=== PATIENT | male | born 1990 | race Two or more races ===

== ENCOUNTER 2021-02-12 16:57 | Emergency (ER) | payer OTHER, SELFPAY ==
--- NOTE | ~2021-02-12 | CT_ITS ---
EXAMINATION: CT HEAD WITHOUT CONTRAST CT CERVICAL SPINE WITHOUT CONTRAST CLINICAL INFORMATION: Trauma COMPARISON: None. TECHNIQUE: Multidetector CT imaging of the head and cervical spine was performed without the use of intravenous contrast. Multiplanar reformats are reviewed. This CT examination was performed using dose optimization techniques as appropriate, variously including the following: *Automated exposure control *Adjustment of mA and/or kV according to patient size (this includes techniques or standardized protocols for targeted exams where dose is matched to indication/reason for exam; i.e. extremities or head) *Use of iterative reconstruction technique DLP: 1174 mGy-cm. FINDINGS: There is no evidence of acute intracranial hemorrhage or territorial infarction. No abnormal mass effect or midline shift is seen. Cespedes to white matter differentiation is well preserved. No extra-axial fluid collections are identified. The ventricles are normal in size. There is no abnormal attenuation within the brain parenchyma. The osseous structures and soft tissues are normal. The mastoid air cells and visualized portions of the paranasal sinuses are well-aerated. Atlantooccipital alignment is maintained. The vertebral bodies and posterior elements align normally. No acute fracture or subluxation. Vertebral body heights and intervertebral disc spaces are preserved. Mild uncovertebral arthrosis present at C3-C4. No significant foraminal narrowing or central canal stenosis. The paraspinal soft tissues are unremarkable. The imaged lung apices are clear CT/CT head/brain wo con IMPRESSION: No acute intracranial pathology. No cervical spine fracture or malalignment.
--- NOTE | ~2021-02-12 | XR_ITS ---
EXAMINATION: XR LEFT WRIST: 4 VIEWS CLINICAL INFORMATION: Pain. Trauma. COMPARISON: None FINDINGS: No acute fracture or dislocation. Joint spaces and articular surfaces are preserved. Soft tissues unremarkable. No radiopaque foreign bodies. XR/XR hand wrist LT IMPRESSION: No acute fracture or dislocation.
--- NOTE | ~2021-02-12 | XR_ITS ---
EXAMINATION: XR TIBIA AND FIBULA, LEFT CLINICAL INFORMATION: Pain. Trauma. COMPARISON: None TECHNIQUE: AP and lateral views of the left tibia and fibula were obtained. FINDINGS: No fracture. No dislocation. No joint space narrowing or marginal osteophytes. No osseous erosion. XR/XR tibia fibula LT 2V IMPRESSION: Unremarkable examination.
--- NOTE | ~2021-02-12 | CT_ITS ---
EXAMINATION: CT HEAD WITHOUT CONTRAST CT CERVICAL SPINE WITHOUT CONTRAST CLINICAL INFORMATION: Trauma COMPARISON: None. TECHNIQUE: Multidetector CT imaging of the head and cervical spine was performed without the use of intravenous contrast. Multiplanar reformats are reviewed. This CT examination was performed using dose optimization techniques as appropriate, variously including the following: *Automated exposure control *Adjustment of mA and/or kV according to patient size (this includes techniques or standardized protocols for targeted exams where dose is matched to indication/reason for exam; i.e. extremities or head) *Use of iterative reconstruction technique DLP: 1174 mGy-cm. FINDINGS: There is no evidence of acute intracranial hemorrhage or territorial infarction. No abnormal mass effect or midline shift is seen. Cespedes to white matter differentiation is well preserved. No extra-axial fluid collections are identified. The ventricles are normal in size. There is no abnormal attenuation within the brain parenchyma. The osseous structures and soft tissues are normal. The mastoid air cells and visualized portions of the paranasal sinuses are well-aerated. Atlantooccipital alignment is maintained. The vertebral bodies and posterior elements align normally. No acute fracture or subluxation. Vertebral body heights and intervertebral disc spaces are preserved. Mild uncovertebral arthrosis present at C3-C4. No significant foraminal narrowing or central canal stenosis. The paraspinal soft tissues are unremarkable. The imaged lung apices are clear CT/CT cervical spine wo con IMPRESSION: No acute intracranial pathology. No cervical spine fracture or malalignment.
[2021-02-12 16:58] VITALS: BP 156/106; PULSE 105; RESP 20; TEMP 37; O2SAT 98; BMI 26.4
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
[2021-02-12 18:35] VITALS: BP 149/100; PULSE 79; RESP 14; O2SAT 100
== END 2021-02-12 18:50 | disposition home or self-care (01) ==
PROVIDERS: Emergency Provider Internal Medicine
DX: S16.1XXA Strain of muscle, fascia and tendon at neck level, initial encounter (principal); S06.0X0A Concussion without loss of consciousness, initial encounter; S80.12XA Contusion of left lower leg, initial encounter; V43.62XA Car passenger injured in collision with other type car in traffic accident, initial encounter; W22.12XA Striking against or struck by front passenger side automobile airbag, initial encounter; M25.532 Pain in left wrist; M79.645 Pain in left finger(s); F17.200 Nicotine dependence, unspecified, uncomplicated; F12.90 Cannabis use, unspecified, uncomplicated; Y93.89 Activity, other specified; Y92.414 Local residential or business street as the place of occurrence of the external cause; Y99.9 Unspecified external cause status
CPT/HCPCS: 70450; 72125; 73110; 73130; 73590; 99284; 99285

== ENCOUNTER 2021-02-24 02:23 | Emergency (ER) | payer MEDICAID, SELFPAY ==
[2021-02-24] VITALS (8 sets, daily range): BP systolic 111–149; BP diastolic 74–95; PULSE 72–94; RESP 14–18; TEMP 36.7; O2SAT 96–99; BMI 30.2
--- NOTE | 2021-02-24 02:58 | ED.OVERDOSE ---
HPI - Overdose General Chief Complaint: Overdose Stated Complaint: OVERDOSE Time Seen by Provider: 02/24/21 02:58 Source: patient Mode of arrival: ambulatory Limitations: no limitations History of Present Illness HPI Narrative: Patient feeling depressed took about 12 tablets of regular Tylenol and five 800 mg of ibuprofen an hour prior to arrival as a suicidal attempt patient was also drinking all day denies any suicidal feeling at this time feel depressed complaint: intentional overdose Onset (ago): hour(s) Related Data Previous Rx's Medication Instructions Recorded cyclobenzaprine 10 mg PO TID PRN #10 tab 02/12/21 ibuprofen 800 mg PO Q8H PRN #20 tab 02/12/21 Allergies Allergy/AdvReac Type Severity Reaction Status Date / Time acyclovir [ACYCLOVIR] Allergy Unknown UNKNOWN Verified 02/12/21 17:14 Review of Systems Review of Systems: Constitutional : No Fever, No Chills ENT/Mouth : No Ear Pain, No Nasal Congestion, No sore throat Eyes: No Eye Pain, No Swelling, No Redness Cardiovascular : No Chest Pain, No SOB Respiratory : No Cough, No Sputum, No Dyspnea Gastrointestinal : No Nausea, No Vomiting, No Diarrhea, No Hematochezia, No Melena Genitourinary : No Dysuria, No Urinary Frequency, No Hematuria Musculoskeletal : No Myalgias Skin : No Skin Lesions, No rash Neuro : No Weakness, No Numbness, No Paresthesias, No Dizziness, No Headache Psych : positive Anxiety, positive Depression, positive SI Heme/Lymph: No Lymphadenopathy Endocrine : No Polyuria, No Polydipsia [facility] Past Medical History Medical History (Updated 02/24/21 @ 03:05 by Nam Tidwell MD) Depression Social History Social History Smoking Status: Current every day smoker Substance Use Type: Marijuana Advance Directives: No Advance Directives Information Provided: No Physical Exam Vital Signs: Vital Signs: Last Vital Signs Temp 98.1 F 02/24/21 03:06 Pulse 75 02/24/21 05:39 Resp 16 02/24/21 05:39 BP 128/86 02/24/21 05:39 Pulse Ox 97 02/24/21 05:39 Body Mass Index 30.2 Const: Other: EtOH smell++ General: healthy appearing, comfortable and no acute distress Nutritional Appearance: average body habitus Orientation/consciousness: patient oriented x3 HENMT: Head: Yes normocephalic and Yes atraumatic Ears: hearing grossly normal bilaterally Eyes: General: appearance normal, both eyes and all related structures Sclerae: sclerae normal Corneas: corneas normal Pupils: Equal, round and reactive pupils present Neck: Neck: Yes normal visual inspection, Yes full ROM, Yes no lymphadenopathy and Yes no meningeal signs Chest: Chest palpation & inspection: normal inspection of the chest Resp: Effort & Inspection: normal respiratory effort Auscultation: clear to auscultation bilaterally Cardio: Palpation: normal PMI Rate: regular rate Rhythm: regular rhythm Heart sounds: S1 normal heart sound present and S2 normal heart sound present GI: Inspection: Yes normal to inspection Palpation (GI): Soft to palpation and nontender Auscultation: normal bowel sounds : General: Yes no CVA tenderness Back/Spine/Pelvis: Back: no CVA tenderness Thoracic/Lumbar Spine: thoracic and lumbar spine normal to inspection Skin: General skin exam: no rashes or lesions noted Neuro: General: patient oriented x3, gait normal, tone normal, no meningeal signs, no focal motor deficits and CN's II-XI intact bilaterally Cranial nerves: Yes Equal, round and reactive pupils present Extrem: General: Yes normal to inspection and Yes no pedal edema Psych: Appearance: grossly normal Mental Status: mental status grossly normal Speech and movement: Normal speech and movement present Affect: Sad affect present Attitude: cooperative Thought process: Normal thought process present Thought content: Suicidality present Insight: Fair insight present (Psych) Judgement: Fair judgement present (Psych) MDM - Overdose MDM Narrative Medical decision making narrative: Patient depression nontoxic overdose with alcohol use suicidal feeling will get crisis evaluated patient medically cleared Differential Diagnosis Differential diagnosis: Likely suicide attempt by multiple drug overdose Lab Data Attestation: I reviewed the patient's lab results. Result diagrams: 02/24/21 03:58 02/24/21 03:58 Labs: Lab Results 02/24/21 02/24/21 02/24/21 Range/Units 03:46 03:49 03:57 WBC (4.8-10.8) X10*3/uL RBC (4.60-5.80) X10*6/uL Hgb (14.0-18.0) g/dl Hct (42-52) % MCV (80-98) fL MCH (27.0-33.0) pg MCHC (31.0-36.0) g/dl RDW (11.0-16.0) % Plt Count (160-400) X10*3/uL MPV (9.4-12.4) fL Immature Gran % (Auto) (0.0-0.4) % Neut % (Auto) (45-73) % Lymph % (Auto) (20-40) % [place] % (Auto) (2-11) % Eos % (Auto) (0-4) % Baso % (Auto) (0-2) % Lymph # (Auto) (1.2-4.9) X10*3/uL [place] # (Auto) (0.1-1.2) X10*3/uL Eos # (Auto) (0.0-0.4) X10*3/uL Baso # (Auto) (0.0-0.2) X10*3/uL Abs Immat Gran (auto) (0.00-0.03) X10*3/uL Absolute Neuts (auto) (2.0-8.3) X10*3/uL Absolute Nucleated RBC (0.0-0.012) X10*3/uL Nucleated RBC % (auto) (0.0-0.2) /100WBC PT (10.8-13.0) SEC INR (0.9-1.1) Sodium (135-145) mmol/L Potassium (3.3-5.1) mmol/L Chloride (96-108) mmol/L Carbon Dioxide (22-29) mmol/L Anion Gap (12-20) BUN (9-16) mg/dL Creatinine (0.5-1.4) mg/dL Estim Creat Clear Calc Estimated GFR Random Glucose (60-115) mg/dL Calcium (8.4-10.2) mg/dL Total Bilirubin (0.0-1.0) mg/dL Direct Bilirubin (0.0-0.5) mg/dL AST (5-37) U/L ALT (0-40) U/L Alkaline Phosphatase (39-117) U/L Total Protein (6.5-8.0) g/dL Albumin (3.5-5.0) g/dL Salicylates (15-30) mg/dL Urine Opiates Screen Not Detected (Not Detect) Acetaminophen (<30) mcg/mL Ur Barbiturates Screen Not Detected (Not Detect) Ur Phencyclidine Scrn Not Detected (Not Detect) Ur Amphetamines Screen Not Detected (Not Detect) U Benzodiazepines Scrn Not Detected (Not Detect) Urine Cocaine Screen POSITIVE H (Not Detect) U Marijuana (THC) Screen Not Detected (Not Detect) Ethyl Alcohol 94 mg/dL COVID-19 ([facility]) Negative (Negative) COVID-19 Clin Com See Note 02/24/21 02/24/21 02/24/21 Range/Units 03:57 03:58 03:58 WBC 10.8 (4.8-10.8) X10*3/uL RBC 5.47 (4.60-5.80) X10*6/uL Hgb 16.6 (14.0-18.0) g/dl Hct 47.7 (42-52) % MCV 87.2 (80-98) fL MCH 30.3 (27.0-33.0) pg MCHC 34.8 (31.0-36.0) g/dl RDW 12.7 (11.0-16.0) % Plt Count 199 (160-400) X10*3/uL MPV 10.8 (9.4-12.4) fL Immature Gran % (Auto) 0.3 (0.0-0.4) % Neut % (Auto) 61.5 (45-73) % Lymph % (Auto) 30.2 (20-40) % [place] % (Auto) 7.4 (2-11) % Eos % (Auto) 0.1 (0-4) % Baso % (Auto) 0.5 (0-2) % Lymph # (Auto) 3.3 (1.2-4.9) X10*3/uL [place] # (Auto) 0.8 (0.1-1.2) X10*3/uL Eos # (Auto) 0.0 (0.0-0.4) X10*3/uL Baso # (Auto) 0.1 (0.0-0.2) X10*3/uL Abs Immat Gran (auto) 0.03 (0.00-0.03) X10*3/uL Absolute Neuts (auto) 6.7 (2.0-8.3) X10*3/uL Absolute Nucleated RBC 0.000 (0.0-0.012) X10*3/uL Nucleated RBC % (auto) 0.0 (0.0-0.2) /100WBC PT (10.8-13.0) SEC INR (0.9-1.1) Sodium 141 (135-145) mmol/L Potassium 3.5 (3.3-5.1) mmol/L Chloride 104 (96-108) mmol/L Carbon Dioxide 25 (22-29) mmol/L Anion Gap 16 (12-20) BUN 7 L (9-16) mg/dL Creatinine 0.87 (0.5-1.4) mg/dL Estim Creat Clear Calc 132.8 Estimated GFR > 60 Random Glucose 96 (60-115) mg/dL Calcium 9.1 (8.4-10.2) mg/dL Total Bilirubin 0.4 (0.0-1.0) mg/dL Direct Bilirubin 0.2 (0.0-0.5) mg/dL AST 16 (5-37) U/L ALT 23 (0-40) U/L Alkaline Phosphatase 61 (39-117) U/L Total Protein 7.2 (6.5-8.0) g/dL Albumin 4.7 (3.5-5.0) g/dL Salicylates < 5.0 L (15-30) mg/dL Urine Opiates Screen (Not Detect) Acetaminophen 73 H* (<30) mcg/mL Ur Barbiturates Screen (Not Detect) Ur Phencyclidine Scrn (Not Detect) Ur Amphetamines Screen (Not Detect) U Benzodiazepines Scrn (Not Detect) Urine Cocaine Screen (Not Detect) U Marijuana (THC) Screen (Not Detect) Ethyl Alcohol mg/dL COVID-19 ([facility]) (Negative) COVID-19 Clin Com 02/24/21 Range/Units 03:58 WBC (4.8-10.8) X10*3/uL RBC (4.60-5.80) X10*6/uL Hgb (14.0-18.0) g/dl Hct (42-52) % MCV (80-98) fL MCH (27.0-33.0) pg MCHC (31.0-36.0) g/dl RDW (11.0-16.0) % Plt Count (160-400) X10*3/uL MPV (9.4-12.4) fL Immature Gran % (Auto) (0.0-0.4) % Neut % (Auto) (45-73) % Lymph % (Auto) (20-40) % [place] % (Auto) (2-11) % Eos % (Auto) (0-4) % Baso % (Auto) (0-2) % Lymph # (Auto) (1.2-4.9) X10*3/uL [place] # (Auto) (0.1-1.2) X10*3/uL Eos # (Auto) (0.0-0.4) X10*3/uL Baso # (Auto) (0.0-0.2) X10*3/uL Abs Immat Gran (auto) (0.00-0.03) X10*3/uL Absolute Neuts (auto) (2.0-8.3) X10*3/uL Absolute Nucleated RBC (0.0-0.012) X10*3/uL Nucleated RBC % (auto) (0.0-0.2) /100WBC PT 12.8 (10.8-13.0) SEC INR 1.1 (0.9-1.1) Sodium (135-145) mmol/L Potassium (3.3-5.1) mmol/L Chloride (96-108) mmol/L Carbon Dioxide (22-29) mmol/L Anion Gap (12-20) BUN (9-16) mg/dL Creatinine (0.5-1.4) mg/dL Estim Creat Clear Calc Estimated GFR Random Glucose (60-115) mg/dL Calcium (8.4-10.2) mg/dL Total Bilirubin (0.0-1.0) mg/dL Direct Bilirubin (0.0-0.5) mg/dL AST (5-37) U/L ALT (0-40) U/L Alkaline Phosphatase (39-117) U/L Total Protein (6.5-8.0) g/dL Albumin (3.5-5.0) g/dL Salicylates (15-30) mg/dL Urine Opiates Screen (Not Detect) Acetaminophen (<30) mcg/mL Ur Barbiturates Screen (Not Detect) Ur Phencyclidine Scrn (Not Detect) Ur Amphetamines Screen (Not Detect) U Benzodiazepines Scrn (Not Detect) Urine Cocaine Screen (Not Detect) U Marijuana (THC) Screen (Not Detect) Ethyl Alcohol mg/dL COVID-19 ([facility]) (Negative) COVID-19 Clin Com ECG Data Attestation: I personally reviewed and interpreted this ECG as follows: Interpretation: Normal sinus rhythm heart rate 67 beats per minute normal axis normal intervals no acute ST T wave changes no acute ischemia Discharge Plan Discharge Prescriptions: No Action cyclobenzaprine 10 mg tablet 10 mg PO TID PRN (Reason: muscle spasm) Qty: 10 RF: 0 ibuprofen 800 mg tablet 800 mg PO Q8H PRN (Reason: pain) Qty: 20 RF: 0
--- NOTE | 2021-02-24 02:59 | ECG_ITS ---
Test Reason : OD Blood Pressure : / mmHG Vent. Rate : 067 BPM Atrial Rate : 067 BPM P-R Int : 134 ms QRS Dur : 104 ms QT Int : 422 ms P-R-T Axes : 022 038 018 degrees QTc Int : 445 ms Normal sinus rhythm Nonspecific ST and T wave abnormality Abnormal ECG No previous ECGs available Referred By: Nam Tidwell Electronically Signed By:ANAID COOK MD
--- NOTE | 2021-02-24 03:00 | PC.NURSE ---
HL PLACED TO [facility], LABS DRAWN TO LAB. URINE SAMPLE SENT TO LAB FOR EVAL.
[2021-02-24] MEDS: Activated charcoaL 50 GM/240 ML ORAL.SUSP PO (03:30)
--- NOTE | 2021-02-24 03:30 | PC.NURSE ---
PT DRINKING CHAROCOAL AT THIS TIME,
[2021-02-24 04:06] LABS: MANUAL DIFF FLAG NO
[2021-02-24 04:08] LABS: Basophils Absolute Auto 0.1 X10*3/uL (0.0-0.2); Basophils Percent Auto 0.5 % (0-2); Eosinophils Percent Auto 0.1 % (0-4); Hematocrit 47.7 % (42-52); Hemoglobin 16.6 g/dl (14.0-18.0); Imm Gran Abs Auto 0.03 X10*3/uL (0.00-0.03); Imm Gran Pct Auto 0.3 % (0.0-0.4); Lymphocytes Absolute Auto 3.3 X10*3/uL (1.2-4.9); Lymphocytes Percent Auto 30.2 % (20-40); Mean Corpuscular HGB Conc 34.8 g/dl (31.0-36.0); Mean Corpuscular Hemoglobin 30.3 pg (27.0-33.0); Mean Corpuscular Volume 87.2 fL (80-98); Mean Platelet Volume 10.8 fL (9.4-12.4); Monocytes Absolute Auto 0.8 X10*3/uL (0.1-1.2); Monocytes Percent Auto 7.4 % (2-11); Neutrophils Absolute Auto 6.7 X10*3/uL (2.0-8.3); Neutrophils Percent Auto 61.5 % (45-73); Platelet Count 199 X10*3/uL (160-400); Red Blood Count 5.47 X10*6/uL (4.60-5.80); Red Cell Distribution Width 12.7 % (11.0-16.0); White Blood Count 10.8 X10*3/uL (4.8-10.8)
[2021-02-24 04:23] LABS: COVID-19 Test Negative (Negative)
[2021-02-24 04:25] LABS: INTERNATIONAL NORM RATIO 1.1 (0.9-1.1); Prothrombin Time 12.8 SEC (10.8-13.0)
[2021-02-24 04:27] LABS: Ethanol 94 mg/dL
[2021-02-24 04:30] LABS: Alanine Aminotransferase 23 U/L (0-40); Albumin Level 4.7 g/dL (3.5-5.0); Alkaline Phosphatase 61 U/L (39-117); Anion Gap 16 (12-20); Aspartate Amino Transferase 16 U/L (5-37); Bilirubin Direct 0.2 mg/dL (0.0-0.5); Bilirubin Total 0.4 mg/dL (0.0-1.0); Blood Urea Nitrogen 7 mg/dL (9-16); Calcium 9.1 mg/dL (8.4-10.2); Carbon Dioxide 25 mmol/L (22-29); Chloride 104 mmol/L (96-108); Creatinine Clr Calc Pharmacy 132.8; Estimated Glomerular Filt Rate > 60; Glucose Random 96 mg/dL (60-115); Potassium 3.5 mmol/L (3.3-5.1); Salicylate < 5.0 mg/dL (15-30); Sodium 141 mmol/L (135-145); Total Protein 7.2 g/dL (6.5-8.0)
--- NOTE | 2021-02-24 04:33 | PC.NURSE ---
PT REMAINS CALM AND COOPERATIVE IN ROOM, PT DENIES ANY COMPLAINTS, SITTER WATCHING PT FOR SAFETY. PT IN NAD.
[2021-02-24 04:34] LABS: Acetaminophen LAB 73 mcg/mL (<30)
[2021-02-24 04:44] LABS: Amphetamine Screen Urine Not Detected (Not Detect); Barbiturates, Urine Not Detected (Not Detect); Benzodiazepines Screen Urine Not Detected (Not Detect); Cannabinoid Screen Urine Not Detected (Not Detect); Cocaine Screen Urine POSITIVE (Not Detect); Opiate Screen Urine Not Detected (Not Detect); Phencyclidine Screen Urine Not Detected (Not Detect)
--- NOTE | 2021-02-24 05:40 | PC.NURSE ---
pt refusing to drink charcoal. aware.
[2021-02-24 07:03] LABS: Acetaminophen LAB 55 mcg/mL (<30)
[2021-02-24] MEDS: Omeprazole 20 MG CAPSULE.DR PO (08:06)
[2021-02-24] MEDS: Magnesium Hydrox/Alum Hydrox 30 ML ORAL.SUSP PO (08:06)
--- NOTE | 2021-02-24 09:52 | PC.NURSE ---
Pt calm and cooperative. Denies SI/HI at this time. Aware of plan to await [facility]N evaluation. Breakfast provided. [facility]N faxed/called as pt medically cleared. n to call this RN back for more information regarding pt.
--- NOTE | 2021-02-24 15:27 | MHC.CM.ED ---
Per Jory Schultz in Finance: Jeancarlos Olmos is listed as self-pay. The MH application is completed and he is eligible effective 02/14/21. Account will be updated once it shows active in the eligibility system. Currently it shows pending MH. Registration is aware and they will alert billing.
--- NOTE | 2021-02-24 17:26 | PC.NURSE ---
BHN at bedside at this time
== END 2021-02-24 18:35 | disposition home or self-care (01) ==
PROVIDERS: Emergency Provider Internal Medicine
DX: F33.1 Major depressive disorder, recurrent, moderate (principal); T39.1X2A Poisoning by 4-Aminophenol derivatives, intentional self-harm, initial encounter; T39.311A Poisoning by propionic acid derivatives, accidental (unintentional), initial encounter; Y92.9 Unspecified place or not applicable; F17.200 Nicotine dependence, unspecified, uncomplicated; F12.90 Cannabis use, unspecified, uncomplicated; Z71.6 Tobacco abuse counseling; Z79.899 Other long term (current) drug therapy; Z20.822 Contact with and (suspected) exposure to COVID-19
CPT/HCPCS: 36415; 80048; 80076; 80143; 80179; 80307; 80320; 85025; 85610; 87635; 93005; 99285

== ENCOUNTER 2021-08-20 16:51 | Emergency (ER) | payer MEDICAID, SELFPAY ==
--- NOTE | ~2021-08-20 | XR_ITS ---
EXAMINATION: XR CHEST XR LUMBOSACRAL SPINE CLINICAL INFORMATION: Shortness of breath. Back pain. COMPARISON: None TECHNIQUE: 2 views of the chest and 2 views, 3 images of the lumbosacral spine were obtained. FINDINGS: Chest: Both lungs are symmetrically expanded, and appear clear. The cardiomediastinal silhouette is within normal limits. No evidence of any pleural effusion or pneumothorax present. The visualized upper abdomen is unremarkable. Lumbosacral spine: The heights of the lumbar vertebrae are well-maintained. The intervertebral disc heights are well-maintained. The posterior appendages are intact. The paraspinal soft tissues are unremarkable. XR/XR lumbar spine 2-3V IMPRESSION: Unremarkable radiographic appearance of the chest and lumbosacral spine.
--- NOTE | ~2021-08-20 | XR_ITS ---
EXAMINATION: XR CHEST XR LUMBOSACRAL SPINE CLINICAL INFORMATION: Shortness of breath. Back pain. COMPARISON: None TECHNIQUE: 2 views of the chest and 2 views, 3 images of the lumbosacral spine were obtained. FINDINGS: Chest: Both lungs are symmetrically expanded, and appear clear. The cardiomediastinal silhouette is within normal limits. No evidence of any pleural effusion or pneumothorax present. The visualized upper abdomen is unremarkable. Lumbosacral spine: The heights of the lumbar vertebrae are well-maintained. The intervertebral disc heights are well-maintained. The posterior appendages are intact. The paraspinal soft tissues are unremarkable. XR/XR chest 2V IMPRESSION: Unremarkable radiographic appearance of the chest and lumbosacral spine.
[2021-08-20 16:57] VITALS: BP 132/73; BP 160/50; PULSE 73; PULSE 88; RESP 18; TEMP 36.1; O2SAT 99; BMI 25.7
--- NOTE | 2021-08-20 17:06 | PC.NURSE ---
patient arrives to ED with back spasm. States history of back pain. A+Ox4. 09/03 pain. VSS. Able to move lower and upper extremities.
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
[2021-08-20] MEDS: methylPREDNISolone Sod Succ 125 MG/2 ML VIAL IVPUSH (17:19)
[2021-08-20] MEDS: Ketorolac Tromethamine 15 MG/ML VIAL 30 MG IVPUSH (17:20)
[2021-08-20] MEDS: HYDROmorphone HCl 1 MG/ML SYRINGE IVPUSH (17:21)
[2021-08-20 17:23] LABS: MANUAL DIFF FLAG NO
[2021-08-20 17:31] LABS: Basophils Percent Auto 0.4 % (0-2); Eosinophils Percent Auto 0.2 % (0-4); Hematocrit 44.9 % (42-52); Hemoglobin 15.5 g/dl (14.0-18.0); Imm Gran Abs Auto 0.02 X10*3/uL (0.00-0.03); Imm Gran Pct Auto 0.2 % (0.0-0.4); Lymphocytes Absolute Auto 1.7 X10*3/uL (1.2-4.9); Lymphocytes Percent Auto 16.6 % (20-40); Mean Corpuscular HGB Conc 34.5 g/dl (31.0-36.0); Mean Corpuscular Hemoglobin 29.8 pg (27.0-33.0); Mean Corpuscular Volume 86.3 fL (80-98); Mean Platelet Volume 11.1 fL (9.4-12.4); Monocytes Absolute Auto 0.6 X10*3/uL (0.1-1.2); Monocytes Percent Auto 5.9 % (2-11); Neutrophils Absolute Auto 8.1 X10*3/uL (2.0-8.3); Neutrophils Percent Auto 76.7 % (45-73); Platelet Count 188 X10*3/uL (160-400); Red Cell Distribution Width 12.7 % (11.0-16.0); White Blood Count 10.5 X10*3/uL (4.8-10.8)
[2021-08-20 17:39] LABS: COVID-19 Test Negative (Negative)
[2021-08-20 17:45] LABS: Alanine Aminotransferase 33 U/L (0-40); Albumin Level 4.4 g/dL (3.5-5.0); Alkaline Phosphatase 56 U/L (39-117); Anion Gap 12 (12-20); Aspartate Amino Transferase 18 U/L (5-37); Bilirubin Total 0.7 mg/dL (0.0-1.0); Blood Urea Nitrogen 10 mg/dL (9-16); Calcium 9.5 mg/dL (8.4-10.2); Carbon Dioxide 27 mmol/L (22-29); Chloride 106 mmol/L (96-108); Creatinine Clr Calc Pharmacy 102.6; Estimated Glomerular Filt Rate > 60; Glucose Random 102 mg/dL (60-115); Potassium 3.8 mmol/L (3.3-5.1); Sodium 141 mmol/L (135-145); Total Protein 6.6 g/dL (6.5-8.0)
[2021-08-20 19:32] LABS: Appearance Urine CLEAR; Color Urine YELLOW; Glucose Urine UA NEG (NEG); Leukocyte Esterase Urine NEG (NEG); Nitrite Urine NEG (NEG); PH 8.5 (5.0-8.0); Specific Gravity - Urine 1.015 (1.005-1.025); Urine Blood NEG (NEG); Urine Ketones 15 MG/DL (NEG); Urine Protein NEG (NEG-TRACE)
== END 2021-08-20 20:19 | disposition home or self-care (01) ==
PROVIDERS: Emergency Provider Emergency Medicine; PCP Internal Medicine
DX: M54.5 Low back pain (principal); F12.90 Cannabis use, unspecified, uncomplicated; R05 Cough; R06.02 Shortness of breath; Z20.822 Contact with and (suspected) exposure to COVID-19; Z79.899 Other long term (current) drug therapy
CPT/HCPCS: 36415; 71046; 72100; 80053; 81003; 85025; 87635; 96374; 96375; 99283; 99284; J1170; J1885; J2930

== ENCOUNTER 2021-11-02 18:56 | Emergency (ER) | payer MEDICAID, SELFPAY ==
[2021-11-02 19:11] VITALS: BP 130/70; BP 141/91; PULSE 76; PULSE 87; RESP 18; TEMP 37.1; O2SAT 100; O2SAT 97; BMI 24.3
--- NOTE | 2021-11-02 19:30 | ED_ITS ---
HPI - General Adult General Chief complaint: General Medical Stated complaint: WITHDRAWAL FROM PERCOCET Time Seen by Provider: 11/02/21 19:04 Source: patient Mode of arrival: ambulatory Limitations: no limitations History of Present Illness HPI narrative: Patient with history of Percocet abuse for last 4 months takes 20-30 mg tablets 10-15 tablets a day last use was 4 days ago never been to detox would like to stop using the drugs hence came to the ER patient snort Percocet tablets denies any other substance abuse for last 3 days patient has been having withdrawal symptoms with muscle ache headache nausea vomiting unable to get in to detox program Related Data Previous Rx's Medication Instructions Recorded ibuprofen 800 mg tablet 800 mg PO Q8H PRN #20 tab 02/12/21 cyclobenzaprine 10 mg tablet 10 mg PO TID #20 tab 08/20/21 ibuprofen 800 mg tablet 800 mg PO TID #30 tab 08/20/21 Allergies Allergy/AdvReac Type Severity Reaction Status Date / Time acyclovir [ACYCLOVIR] Allergy Unknown UNKNOWN Verified 11/02/21 19:15 Review of Systems Review of Systems: Yes all other systems are reviewed and are negative PMFSH Past Medical History Medical History Depression Social History Social History Alcohol intake: current Alcohol intake frequency: a few times a week Alcohol type: beer Use of substances other than those prescribed or required for medical reasons: Yes Substance Use Type: Marijuana Advance Directives: No Advance Directives Information Provided: Yes Physical Exam Vital Signs: Vital Signs: Last Vital Signs Temp 98 F 11/02/21 21:55 Pulse 73 11/02/21 21:55 Resp 16 11/02/21 21:55 BP 130/76 11/02/21 21:55 Pulse Ox 99 11/02/21 21:55 BMI result Body Mass Index 24.3 Appearance: Alert. Oriented X3. No acute distress. Anxious Eyes: PERRLA, No Nystagmus ENT: Pharynx normal. Oral Mucosa moist Neck: Normal inspection. Neck supple. CVS: Normal heart rate and rhythm. Pulses normal. Respiratory: No respiratory distress. Equal air entry bilateral, no wheezing/rales/rhonchi Abdomen: Soft and nontender. Bowel sounds are present, Skin: Skin warm and dry. Normal skin color. Normal skin turgor. Extremities: No lower extremity edema. No calf tenderness Neuro: Oriented X 3. No motor deficit. Medical Decision Making MDM Narrative Medical decision making narrative: Patient seen by cryolite recovery operator plan to place him detox in the morning will give Ativan for withdrawal symptoms which helped patient Lab Data Lab results reviewed: Yes I reviewed the patient's lab results. Labs: Lab Results 11/02/21 Range/Units 23:10 COVID-19 ([facility]) Negative (Negative) COVID-19 Clin Com See Note Discharge Plan Discharge Clinical Impression: Narcotic abuse Patient Disposition: Home, Self-Care Instructions: Narcotic Use Disorder (ED) Additional Instructions: Medically cleared for detox placement Prescriptions: No Action ibuprofen 800 mg tablet 800 mg PO Q8H PRN (Reason: pain) Qty: 20 RF: 0 ibuprofen 800 mg tablet 800 mg PO TID Qty: 30 RF: 0 cyclobenzaprine 10 mg tablet 10 mg PO TID Qty: 20 RF: 0
[2021-11-02] MEDS: LORazepam 2 MG/ML VIAL 1 MG IVPUSH (19:59)
--- NOTE | 2021-11-02 20:02 | MHC.RECOVSUP ---
? Reason for consult: Recovery Support o ? ? ?Current location: ?ED 6H o ? ? ?Identified substance use concern: Opiates - Percocet? - Withdrawal - Seeking ATS (detox) - Support ? ?Intervention: o Community resources provided o Harm reduction discussion ? Plan: ? Additional information:?I was able to connect with patient and review harm reduction strategies in regards to treatment. Patient is looking for detox and MAT treatment. Calling area detox and notified the care team.
--- NOTE | 2021-11-02 21:35 | PC.NURSE ---
current plan is that patient will stay here until he can get placed in a detox in the morning.
[2021-11-02 21:55] VITALS: BP 130/76; PULSE 73; RESP 16; TEMP 36.6; O2SAT 99
[2021-11-02] MEDS: Nicotine 21 MG PATCH.TD24 TRANSDERMA (22:16)
--- NOTE | 2021-11-02 22:16 | PC.NURSE ---
PT REQUESTING MORE COMFORT MEDICATIONS INCREASED MUSCLE ACHES AND ABDOMINAL PAIN
[2021-11-02 23:27] LABS: COVID-19 Test Negative (Negative); IDNOW Serial# 9DD0AD1C
[2021-11-02] MEDS: LORazepam 1 MG TABLET 2 MG PO (23:27)
[2021-11-03 03:09] VITALS: BP 122/82; PULSE 77; RESP 16; O2SAT 99
--- NOTE | 2021-11-03 03:20 | PC.NURSE ---
PT MOVED TO RM 8 FOR COMFORT AND DECREASED STIMULATION. AWAITING CARE TEAM IN AM FOR DETOX.
[2021-11-03 03:31] LABS: Amphetamine Screen Urine Not Detected (Not Detect); Barbiturates, Urine Not Detected (Not Detect); Benzodiazepines Screen Urine Not Detected (Not Detect); Cannabinoid Screen Urine Not Detected (Not Detect); Cocaine Screen Urine Not Detected (Not Detect); Fentanyl, urine POSITIVE (Not Detect); Opiate Screen Urine Not Detected (Not Detect); Phencyclidine Screen Urine Not Detected (Not Detect)
[2021-11-03] MEDS: Ketorolac Tromethamine 30 MG/ML VIAL 15 MG IM (06:06)
[2021-11-03 06:07] VITALS: BP 132/81; PULSE 70; RESP 16; TEMP 36.7; O2SAT 98
[2021-11-03] MEDS: Acetaminophen 325 MG TABLET 975 MG PO (06:07)
[2021-11-03] MEDS: Buprenorphine/Naloxone 4/1 mg FILM 1 FILM SUBLINGUAL ×2 (09:38→11:10)
--- NOTE | 2021-11-03 09:52 | MHC.RECOVRN ---
Met with pt in ED8 to discuss substance use and tx options. Pt reports [place], [place], x 4-6 months. Pt reports about 20 tabs daily, last use on Saturday. Denies other substances. Pt aware UDS only positive for fentanyl. Pt has used occasionally in the past, however, this is the first time patient has used daily for a significant amount of time. Denies hx overdoses. Pt currently experiencing withdrawal symptoms including upset stomach, restless legs, anxiety. Pt interested in Suboxone initiation and linkage to the [facility]. Pt has stable housing. Pt educated regarding Suboxone as well as other tx modalities. After discussion with pt and provider, pt to receive 4/1 mg Suboxone film. Pt will then present as walk in to the [facility]. T/w available as needed.
--- NOTE | 2021-11-03 11:15 | PC.NURSE ---
NUCLEAR WORKER TECHNICIAN ERLIN IS GOING TO BRING PATIENT TO [facility]. PLAN IS FOR DETOX. PT AGREEABLE TO PLAN. MEDICATED WITH SUBOXONE ORDERED. PT AWAKE, ALERT AND ORIENTED X 3. NO DISTRESS NOTED. NO COMPLAINTS OFFERED.
== END 2021-11-03 11:18 | disposition home or self-care (01) ==
PROVIDERS: Emergency Provider Internal Medicine
DX: F11.10 Opioid abuse, uncomplicated (principal); F41.9 Anxiety disorder, unspecified; M79.10 Myalgia, unspecified site; R11.0 Nausea; R51.9 Headache, unspecified; Z20.822 Contact with and (suspected) exposure to COVID-19; F32.A Depression, unspecified
CPT/HCPCS: 36415; 80305; 80307; 87635; 96372; 96374; 99202; 99283; 99284; J1885; J2060

== ENCOUNTER → 2021-11-03 11:21 | Outpatient (BNVA) | payer MEDICAID, SELFPAY | PROVIDERS: Visit Provider Internal Medicine | DX: Z51.81 Encounter for therapeutic drug level monitoring (principal); F11.10 Opioid abuse, uncomplicated | CPT/HCPCS: 80305; 99202 ==

== ENCOUNTER 2021-11-03 13:07 | Emergency (ER) | payer MEDICAID, SELFPAY ==
[2021-11-03 13:46] VITALS: BP 138/94; PULSE 73; RESP 16; TEMP 37.1; O2SAT 97; BMI 25.1
--- NOTE | 2021-11-03 17:07 | ED_ITS ---
HPI - General Adult General Chief complaint: Back Pain/Injury Stated complaint: back leg pain and vomiting Time Seen by Provider: 11/03/21 13:53 Source: patient Mode of arrival: ambulatory Limitations: no limitations History of Present Illness HPI narrative: 31 y/o male with history of opioid use disorder presents back to the ER asking for Suboxone prescription He was given a total of 8 mg earlier today in the emergency department. He went upstairs for intake with Dr. Ortiz and appointments were made for Saturday. He had reported dizziness and at some point this afternoon and there was concern this was caused by Suboxone. He had no syncopal event, no shortness of breath, no chest pain. It was brief and self-limited. Patient arrives back to emergency room today concerned that he does not have any Suboxone or treatment for the weekend. MD complaint: Suboxone prescription Radiation: non-radiation Relieving factors: none Exacerbating factors: none Associated symptoms: denies other symptoms Treatments prior to arrival: none Related Data Previous Rx's Medication Instructions Recorded ibuprofen 800 mg tablet 800 mg PO Q8H PRN #20 tab 02/12/21 cyclobenzaprine 10 mg tablet 10 mg PO TID #20 tab 08/20/21 ibuprofen 800 mg tablet 800 mg PO TID #30 tab 08/20/21 buprenorphine 8 mg-naloxone 2 mg 1 film BUCCAL DAILY #3 ea 11/03/21 sublingual film (Suboxone) Allergies Allergy/AdvReac Type Severity Reaction Status Date / Time acyclovir [ACYCLOVIR] Allergy Unknown UNKNOWN Verified 11/03/21 11:46 Review of Systems Review of Systems: Constitutional: No Fever, No Chills ENT/Mouth: No sore throat, No Rhinorrhea, No Swallowing Difficulty Cardiovascular: No Chest Pain, No SOB Respiratory: No Cough, No Sputum Gastrointestinal: No Nausea, No Vomiting, No Diarrhea, No abdominal Pain Musculoskeletal: + joint pain, + Myalgias Skin: No Skin Lesions, No rash Neuro: No Weakness, No Numbness, + Dizziness, No Headache Psych: + Anxiety/Panic, + Depression Heme/Lymph: No Bruising, No Lymphadenopathy PMFSH Past Medical History Medical History Depression Social History Social History Alcohol intake: current Alcohol intake frequency: a few times a week Alcohol type: beer Substance Use Type: Marijuana Advance Directives: No Advance Directives Information Provided: No Physical Exam Vital Signs: Vital Signs: Last Vital Signs Temp 98.7 F 11/03/21 13:46 Pulse 73 11/03/21 13:46 Resp 16 11/03/21 13:46 BP 138/94 H 11/03/21 13:46 Pulse Ox 97 11/03/21 13:46 BMI result Body Mass Index 25.1 Appearance: Alert. Oriented X3. No acute distress. Eyes: Pupils equal, round and reactive to light. ENT: Pharynx normal. Neck: Normal inspection. Neck supple. CVS: Normal heart rate and rhythm. Pulses normal. Respiratory: No respiratory distress. Breath sounds normal. Abdomen: Soft and nontender. +BS x4 Skin: Skin warm and dry. Normal skin color. Normal skin turgor. No rashes. Extremities: No lower extremity edema. Neuro: Oriented X 3. No motor deficit. No sensory deficit. Course Course Course Narrative: 31-year-old male with a history of opioid use disorder, abusing Percocet that he was getting on the streets, presents to the ER today with concerns of arranging Suboxone. He was upstairs the clinic and had an intake with Dr. Ortiz. There was concern that a brief dizziness episode was related to Suboxone, however patient is feeling fine now and reports was a self- limited episode. Spoke with Nandini sherman from recovery. Patient has an appointment on Saturday. Comfortable with sending him home with a 3 day prescription for Suboxone. Case was discussed with Dr. Tidwell and 3 days of Suboxone were sent to his pharmacy. Stable for d/c home. Discharge Plan Discharge Clinical Impression: Opioid use disorder Patient Disposition: Home, Self-Care Instructions: Opioid Use Disorder (ED) Additional Instructions: Suboxone has been sent to your pharmacy electronically. Take the 1st dose tomorrow morning. Your given a total of 3 doses. You have an appointment with the clinic again on Saturday, they will arrange everything moving forward. Do not use any other narcotics while your on Suboxone, can make you very ill. Prescriptions: New buprenorphine-naloxone [Suboxone] 8-2 mg film 1 film buccal DAILY Qty: 3 RF: 0 No Action ibuprofen 800 mg tablet 800 mg PO Q8H PRN (Reason: pain) Qty: 20 RF: 0 ibuprofen 800 mg tablet 800 mg PO TID Qty: 30 RF: 0 cyclobenzaprine 10 mg tablet 10 mg PO TID Qty: 20 RF: 0
== END 2021-11-03 17:53 | disposition home or self-care (01) ==
PROVIDERS: Emergency Provider Emergency Medicine Emergency Medical Services
DX: F11.10 Opioid abuse, uncomplicated (principal); F12.90 Cannabis use, unspecified, uncomplicated; Z79.899 Other long term (current) drug therapy
CPT/HCPCS: 99283

== ENCOUNTER → 2021-11-06 13:02 | Outpatient (BNVA) | payer MEDICAID, SELFPAY | PROVIDERS: Visit Provider Internal Medicine | DX: F11.20 Opioid dependence, uncomplicated (principal); F12.90 Cannabis use, unspecified, uncomplicated | CPT/HCPCS: 80305; 99212 ==

== ENCOUNTER → 2021-11-14 15:34 | Outpatient (BNVA) | payer MEDICAID, SELFPAY | PROVIDERS: Visit Provider Internal Medicine | DX: F11.20 Opioid dependence, uncomplicated (principal) | CPT/HCPCS: 80305; 99211 ==

== ENCOUNTER → 2021-11-21 10:34 | Outpatient (BNVA) | payer MEDICAID, SELFPAY | PROVIDERS: Visit Provider Internal Medicine | DX: F11.20 Opioid dependence, uncomplicated (principal) | CPT/HCPCS: 80305; 99212 ==

== ENCOUNTER → 2021-11-28 10:47 | Outpatient (BNVA) | payer MEDICAID, SELFPAY | DX: Z51.81 Encounter for therapeutic drug level monitoring (principal); F11.20 Opioid dependence, uncomplicated | CPT/HCPCS: 80305; 99211 ==

== ENCOUNTER → 2021-12-05 11:11 | Outpatient (BNVA) | payer MEDICAID, SELFPAY | DX: Z51.81 Encounter for therapeutic drug level monitoring (principal); F11.20 Opioid dependence, uncomplicated | CPT/HCPCS: 80305 ==

== ENCOUNTER → 2021-12-12 11:08 | Outpatient (BNVA) | payer MEDICAID, SELFPAY | DX: F11.90 Opioid use, unspecified, uncomplicated (principal) | CPT/HCPCS: 80305; 99211 ==

== ENCOUNTER → 2021-12-25 10:02 | Outpatient (BNVA) | payer MEDICAID, SELFPAY | PROVIDERS: Visit Provider Internal Medicine | DX: Z51.81 Encounter for therapeutic drug level monitoring (principal); F11.20 Opioid dependence, uncomplicated | CPT/HCPCS: 80305 ==

== ENCOUNTER → 2022-01-09 09:52 | Outpatient (BNVA) | payer MEDICAID, SELFPAY | PROVIDERS: Visit Provider Internal Medicine | DX: Z51.81 Encounter for therapeutic drug level monitoring (principal); F11.20 Opioid dependence, uncomplicated | CPT/HCPCS: 80305; 99211 ==

== ENCOUNTER → 2022-01-22 10:54 | Outpatient (BNVA) | payer MEDICAID, SELFPAY | PROVIDERS: Visit Provider Internal Medicine | DX: F11.20 Opioid dependence, uncomplicated (principal) | CPT/HCPCS: 80305 ==

== ENCOUNTER → 2022-02-05 11:08 | Outpatient (BNVA) | payer MEDICAID, SELFPAY | PROVIDERS: Visit Provider Internal Medicine | DX: Z51.81 Encounter for therapeutic drug level monitoring (principal); F11.20 Opioid dependence, uncomplicated | CPT/HCPCS: 80305; 99211 ==

== ENCOUNTER → 2022-02-19 11:20 | Outpatient (BNVA) | payer MEDICAID, SELFPAY | PROVIDERS: Visit Provider Internal Medicine | DX: Z51.81 Encounter for therapeutic drug level monitoring (principal); F11.20 Opioid dependence, uncomplicated | CPT/HCPCS: 80305; 99211 ==

== ENCOUNTER → 2022-03-06 11:19 | Outpatient (BNVA) | payer MEDICAID, SELFPAY | PROVIDERS: Visit Provider Internal Medicine | DX: Z51.81 Encounter for therapeutic drug level monitoring (principal); F11.20 Opioid dependence, uncomplicated | CPT/HCPCS: 80305; 99212 ==

== ENCOUNTER 2022-03-19 00:32 | Emergency (ER) | payer MEDICAID, SELFPAY ==
--- NOTE | ~2022-03-19 | CT_ITS ---
EXAMINATION: CT ABDOMEN AND PELVIS WITH CONTRAST CLINICAL INFORMATION: Abdominal pain COMPARISON: 01/30/2011 TECHNIQUE: Multidetector volumetric images were obtained from the superior aspect of the liver through the pubic symphysis following administration 85 mL of Omnipaque 350 intravenous contrast. Sagittal and coronal reformatted images were obtained on the technologist's workstation. Oral contrast: No This CT examination was performed using dose optimization techniques as appropriate, variously including the following: *Automated exposure control *Adjustment of mA and/or kV according to patient size (this includes techniques or standardized protocols for targeted exams where dose is matched to indication/reason for exam; i.e. extremities or head) *Use of iterative reconstruction technique DLP: 558 mGy-cm FINDINGS: LUNG BASES: The visualized lung bases are unremarkable. LIVER, GALLBLADDER, AND BILIARY TREE: The liver is normal in size, shape, and attenuation. No focal hepatic lesion or biliary ductal dilatation is present. The gallbladder is unremarkable with no evidence of radiopaque gallstones, gallbladder wall thickening, or obvious pericholecystic inflammatory changes. PANCREAS: Unremarkable. SPLEEN: Unremarkable. ADRENAL GLANDS: Unremarkable. KIDNEYS AND URETERS: The kidneys are normal in size, shape, and attenuation. No hydronephrosis, hydroureter, or calculi seen. No perinephric stranding. BLADDER: Unremarkable. GASTROINTESTINAL TRACT: The stomach is unremarkable. Normal caliber small bowel. No obstruction. Normal appendix. No colonic wall thickening or inflammatory change. No free air or free fluid. ABDOMINAL WALL: No significant hernia is appreciated. LYMPH NODES: Normal. VASCULAR: Unremarkable. PELVIC VISCERA: The prostate and seminal vesicles are unremarkable. OSSEOUS STRUCTURES: No acute or suspicious osseous abnormality. CT/CT abdomen pelvis w con IMPRESSION: No acute finding in the abdomen or pelvis. No inflammatory changes. Fleischner guidelines were followed.
[2022-03-19 00:36] VITALS: BP 138/90; PULSE 92; O2SAT 98
[2022-03-19 01:35] VITALS: BP 143/96; PULSE 86; RESP 16; TEMP 36.9; O2SAT 95; BMI 26.0
--- NOTE | 2022-03-19 01:42 | ED_ITS ---
HPI - General Adult General Chief complaint: General Medical Stated complaint: abd pain Time Seen by Provider: 03/19/22 01:39 History of Present Illness HPI narrative: 32 years old with a history of being on Suboxone. Complaining of epigastric pain radiating to the back. Fairly sudden in onset since last night. Positive nausea positive vomiting positive diarrhea positive generalized malaise compliant with meds he has been taking his Suboxone 3 times a day. No chest pain. No diaphoresis. No travel history no recent antibiotics. No history of similar pain in the past. No history of abdominal surgery. Related Data Previous Rx's Medication Instructions Recorded ibuprofen 800 mg tablet 800 mg PO Q8H PRN #20 tab 02/12/21 docusate sodium 100 mg capsule 100 mg PO BID 30 Days #60 cap 11/06/21 (Colace) buprenorphine 8 mg-naloxone 2 mg 3 film SUBLINGUAL DAILY 14 Days 03/06/22 sublingual film (Suboxone) #42 ea ondansetron 4 mg disintegrating 4 mg PO TID PRN 5 Days #10 tab 03/19/22 tablet pantoprazole 40 mg tablet,delayed 40 mg PO DAILY #14 tab 03/19/22 release (Protonix) Allergies Allergy/AdvReac Type Severity Reaction Status Date / Time acyclovir [ACYCLOVIR] Allergy Intermediate Unknown Verified 03/06/22 11:24 Review of Systems Review of Systems: Positive abdominal pain. Positive nausea vomiting diarrhea Yes all other systems are reviewed and are negative PMFSH Past Medical History Attestation statement: The following information was validated with the patient. Medical History Depression Opioid use disorder Family History Family History Maternal Grandmother Diabetes HTN (hypertension) Maternal Grandfather HTN (hypertension) Social History Social History Alcohol intake: current Alcohol intake frequency: a few times a week Alcohol type: beer Patient Tobacco Use Status: Current everyday Tobacco user Cigarettes Per Day: 10 Substance Use Type: Marijuana Advance Directives: No Physical Exam ED Vital Signs: Vital Signs - 24 hr 03/19/22 01:35 Temperature 98.5 F Pulse Rate 86 Respiratory Rate 16 Blood Pressure 143/96 H Pulse Oximetry 95 BMI result Body Mass Index 26.0 Appearance: Alert. Oriented X3. No acute distress. Eyes: Pupils equal, round and reactive to light. ENT: Pharynx normal. Neck: Normal inspection. Neck supple. No lymph nodes noted. No crepitus CVS: Normal heart rate and rhythm. Pulses normal. Normal S1 and S2 Respiratory: No respiratory distress. Breath sounds normal. No Wheezing. No rales Abdomen: Soft and nontender. No rigidity. No distention. good BS x4 Skin: Skin warm and dry. Normal skin color. Normal skin turgor. Extremities: No lower extremity edema. Neurovascular intact to all extremities. No Lacerations. No Rash Neuro: Oriented X 3. No motor deficit. No sensory deficit. Moving all extermities. No slurred speech Medical Decision Making MDM Narrative Medical decision making narrative: 32-year-old male presented with epigastric pain. Patient has CT scan of the abdomen is grossly negative electrolytes unremarkable white count normal LFTs are normal. Will discharge patient home as patient's symptom improved with time. Will give PPI for possible gastritis. In stable condition. Lab Data Lab results reviewed: Yes I reviewed the patient's lab results. Result diagrams: 03/19/22 02:46 03/19/22 02:46 Labs: Lab Results 03/19/22 03/19/22 03/19/22 Range/Units 02:46 02:46 02:46 WBC 10.0 (4.8-10.8) X10*3/uL RBC 5.00 (4.60-5.80) X10*6/uL Hgb 14.6 (14.0-18.0) g/dl Hct 42.0 (42.0-52.0) % MCV 84.0 (80.0-98.0) fL MCH 29.2 (27.0-33.0) pg MCHC 34.8 (31.0-36.0) g/dl RDW 12.3 (11.0-16.0) % Plt Count 186 (160-400) X10*3/uL MPV 11.1 (9.4-12.4) fL Immature Gran % (Auto) 0.3 (0.0-0.4) % Neut % (Auto) 69.4 (45-73) % Lymph % (Auto) 21.7 (20-40) % [place] % (Auto) 7.4 (2-11) % Eos % (Auto) 1.0 (0-4) % Baso % (Auto) 0.2 (0-2) % Lymph # (Auto) 2.2 (1.2-4.9) X10*3/uL [place] # (Auto) 0.7 (0.1-1.2) X10*3/uL Eos # (Auto) 0.1 (0.0-0.4) X10*3/uL Baso # (Auto) 0.0 (0.0-0.2) X10*3/uL Abs Immat Gran (auto) 0.03 (0.00-0.03) X10*3/uL Absolute Neuts (auto) 7.0 (2.0-8.3) x10*3/uL Absolute Nucleated RBC 0.000 (0.0-0.012) X10*3/uL Nucleated RBC % (auto) 0.0 (0.0-0.2) /100WBC Sodium 138 (135-145) mmol/L Potassium 3.9 (3.3-5.1) mmol/L Chloride 105 (96-108) mmol/L Carbon Dioxide 25 (22-29) mmol/L Anion Gap 12 (12-20) BUN 12 (9-16) mg/dL Creatinine 0.85 (0.5-1.4) mg/dL Estim Creat Clear Calc 131.6 Estimated GFR > 60 Random Glucose 106 (60-115) mg/dL Calcium 9.3 (8.4-10.2) mg/dL Total Bilirubin 0.7 (0.0-1.0) mg/dL Direct Bilirubin 0.2 (0.0-0.5) mg/dL AST 20 (5-37) U/L ALT 21 (0-40) U/L Alkaline Phosphatase 83 D (39-117) U/L Total Protein 6.7 (6.5-8.0) g/dL Albumin 4.4 (3.5-5.0) g/dL Lipase 16 (8-78) U/L Ethyl Alcohol < 10 mg/dL Discharge Plan Discharge Clinical Impression: Gastritis Instructions: Gastritis (DC) Prescriptions: New pantoprazole [Protonix] 40 mg tablet,delayed release (DR/EC) 40 mg PO DAILY Qty: 14 0RF ondansetron 4 mg tablet,disintegrating 4 mg PO TID PRN (Reason: nausea and vomiting) 5 Days Qty: 10 0RF No Action ibuprofen 800 mg tablet 800 mg PO Q8H PRN (Reason: pain) Qty: 20 0RF docusate sodium [Colace] 100 mg capsule 100 mg PO BID 30 Days Qty: 60 11RF buprenorphine-naloxone [Suboxone] 8-2 mg film 3 film sublingual DAILY 14 Days Qty: 42 0RF Referrals: Physician,Unknown J [Primary Care Provider] -
[2022-03-19] MEDS: 0.9 % Sodium Chloride 1,000 ML 999 ML IV (02:32)
[2022-03-19] MEDS: ondansetron HCL 4 MG/2 ML VIAL IVPUSH (02:33)
[2022-03-19] MEDS: Ketorolac Tromethamine 30 MG/ML VIAL IVPUSH (02:33)
[2022-03-19 02:53] LABS: Basophils Percent Auto 0.2 % (0-2); Eosinophils Absolute Auto 0.1 X10*3/uL (0.0-0.4); Hemoglobin 14.6 g/dl (14.0-18.0); Imm Gran Abs Auto 0.03 X10*3/uL (0.00-0.03); Imm Gran Pct Auto 0.3 % (0.0-0.4); Lymphocytes Absolute Auto 2.2 X10*3/uL (1.2-4.9); Lymphocytes Percent Auto 21.7 % (20-40); MANUAL DIFF FLAG NO; Mean Corpuscular HGB Conc 34.8 g/dl (31.0-36.0); Mean Corpuscular Hemoglobin 29.2 pg (27.0-33.0); Mean Platelet Volume 11.1 fL (9.4-12.4); Monocytes Absolute Auto 0.7 X10*3/uL (0.1-1.2); Monocytes Percent Auto 7.4 % (2-11); Neutrophils Percent Auto 69.4 % (45-73); Platelet Count 186 X10*3/uL (160-400); Red Cell Distribution Width 12.3 % (11.0-16.0)
[2022-03-19 03:18] LABS: Ethanol < 10 mg/dL
[2022-03-19 03:20] LABS: Alanine Aminotransferase 21 U/L (0-40); Albumin Level 4.4 g/dL (3.5-5.0); Alkaline Phosphatase 83 U/L (39-117); Anion Gap 12 (12-20); Aspartate Amino Transferase 20 U/L (5-37); Bilirubin Direct 0.2 mg/dL (0.0-0.5); Bilirubin Total 0.7 mg/dL (0.0-1.0); Blood Urea Nitrogen 12 mg/dL (9-16); Calcium 9.3 mg/dL (8.4-10.2); Carbon Dioxide 25 mmol/L (22-29); Chloride 105 mmol/L (96-108); Creatinine Clr Calc Pharmacy 131.6; Estimated Glomerular Filt Rate > 60; Glucose Random 106 mg/dL (60-115); Lipase 16 U/L (8-78); Potassium 3.9 mmol/L (3.3-5.1); Sodium 138 mmol/L (135-145); Total Protein 6.7 g/dL (6.5-8.0)
[2022-03-19] MEDS: iohexoL 350 MG/ML 100 ML INFUS..BTL 85 ML IV (03:48)
[2022-03-19 04:37] LABS: Appearance Urine CLEAR; Color Urine YELLOW; Glucose Urine UA NEG (NEG); Leukocyte Esterase Urine NEG (NEG); Nitrite Urine NEG (NEG); Specific Gravity - Urine 1.025 (1.005-1.025); UACC Culture Trigger NO; Urine Blood TRACE (NEG); Urine Ketones NEG (NEG); Urine Protein NEG (NEG-TRACE)
[2022-03-19 04:44] LABS: Bacteria Urine 1+ /LPF; Squamous Epithelial Cell Urine 1+ /LPF
== END 2022-03-19 05:02 | disposition home or self-care (01) ==
PROVIDERS: Emergency Provider Emergency Medicine Emergency Medical Services; PCP Internal Medicine
DX: K29.70 Gastritis, unspecified, without bleeding (principal); R10.13 Epigastric pain; R11.10 Vomiting, unspecified; F17.210 Nicotine dependence, cigarettes, uncomplicated; F12.90 Cannabis use, unspecified, uncomplicated; Z71.6 Tobacco abuse counseling; Z79.899 Other long term (current) drug therapy
CPT/HCPCS: 36415; 51798; 74177; 80048; 80076; 81001; 82077; 83690; 85025; 96361; 96374; 96375; 99284; J1885; J2405; Q9967

== ENCOUNTER 2022-03-20 09:53 | Outpatient (REF) | payer MEDICAID, SELFPAY ==
[2022-03-20 12:33] LABS: Alanine Aminotransferase 19 U/L (0-40); Albumin Level 4.1 g/dL (3.5-5.0); Alkaline Phosphatase 76 U/L (39-117); Aspartate Amino Transferase 18 U/L (5-37); Bilirubin Direct 0.2 mg/dL (0.0-0.5); Bilirubin Total 0.4 mg/dL (0.0-1.0); Total Protein 6.3 g/dL (6.5-8.0)
== END 2022-03-20 09:54 | disposition home or self-care (01) ==
LOC: HO.LAB 09:53
PROVIDERS: PCP Internal Medicine; Visit Provider Internal Medicine
DX: F11.20 Opioid dependence, uncomplicated (principal); Z51.81 Encounter for therapeutic drug level monitoring; Z79.899 Other long term (current) drug therapy
CPT/HCPCS: 36415; 80076; 80305; 99212

== ENCOUNTER → 2022-04-03 09:57 | Outpatient (BNVA) | payer MEDICAID, SELFPAY | PROVIDERS: Visit Provider Internal Medicine | DX: Z51.81 Encounter for therapeutic drug level monitoring (principal); F11.20 Opioid dependence, uncomplicated | CPT/HCPCS: 80305; 99212 ==

== ENCOUNTER → 2022-05-01 10:13 | Outpatient (BNVA) | payer MEDICAID, SELFPAY | PROVIDERS: Visit Provider Internal Medicine | DX: F11.20 Opioid dependence, uncomplicated (principal) | CPT/HCPCS: 80305; 99212 ==

== ENCOUNTER → 2022-06-01 11:45 | Outpatient (BNVA) | payer MEDICAID, SELFPAY | PROVIDERS: Visit Provider Internal Medicine | DX: F11.20 Opioid dependence, uncomplicated (principal); Z51.81 Encounter for therapeutic drug level monitoring | CPT/HCPCS: 99212 ==

== ENCOUNTER → 2022-10-31 08:41 | Outpatient (BNVA) | payer MEDICAID, SELFPAY | PROVIDERS: Visit Provider Nurse Practitioner Psychiatric/Mental Health | DX: F11.20 Opioid dependence, uncomplicated (principal) | CPT/HCPCS: 80305; 99212 ==

== ENCOUNTER → 2022-11-05 09:03 | Outpatient (BNVA) | payer MEDICAID, SELFPAY | PROVIDERS: Visit Provider Nurse Practitioner Psychiatric/Mental Health | DX: Z51.81 Encounter for therapeutic drug level monitoring (principal); F11.20 Opioid dependence, uncomplicated | CPT/HCPCS: 80305; 99212 ==

== ENCOUNTER 2023-04-04 20:24 | Emergency (ER) | payer MEDICAID, SELFPAY ==
--- NOTE | ~2023-04-04 | XR_ITS ---
EXAMINATION: XR CHEST CLINICAL INFORMATION: Unresponsive COMPARISON: None available. TECHNIQUE: Frontal view of the chest was obtained. FINDINGS: No significant abnormality is noted involving the heart, lungs, mediastinum, bony thorax or soft tissues. XR/XR chest 1V IMPRESSION: Unremarkable chest examination.
[2023-04-04 20:27] VITALS: BMI 24.4
[2023-04-04 20:34] VITALS: BP 126/92; PULSE 104; RESP 22; TEMP 36.8; O2SAT 96
--- NOTE | 2023-04-04 20:34 | ED.OVERDOSE ---
HPI - Overdose General Chief Complaint: Overdose Stated Complaint: OD Time Seen by Provider: 04/04/23 20:31 Source: other Mode of arrival: other History of Present Illness HPI Narrative: 33-year-old male who was preemptively dropped off of the ED entrance, unresponsive and noted to have shallow and minimal respirations with upper airway sounds, pinpoint pupils, patient unresponsive and unable to provide any history. Got initial 4 mg of intranasal Narcan in triage and was brought in emergently on a stretcher. Related Data Allergies Allergy/AdvReac Type Severity Reaction Status Date / Time Unable to Assess Allergy Unverified 04/04/23 20:31 Review of Systems Review of Systems: Pertinent positives and negatives as stated in HPI PMFSH Past Medical History Source: nursing notes reviewed Social History Social History Advance Directives: No Advance Directives Information Provided: No Physical Exam Vital Signs: Vital Signs: Last Vital Signs Temp 98.2 F 04/04/23 20:34 Pulse 104 H 04/04/23 20:34 Resp 22 H 04/04/23 20:34 BP 126/92 H 04/04/23 20:34 Pulse Ox 96 04/04/23 20:34 O2 Del Method Room Air 04/04/23 20:34 BMI result Body Mass Index 24.4 VITAL SIGNS: Reviewed. GENERAL: Well developed, well nourished, in respiratory distress HEAD: Normocephalic/atraumatic EYES: PERRLA, pinpoint EARS: Ext canals without abnormality NOSE: Nares patent bilateral OROPHARYNX: no oral lesions noted, posterior pharynx clear NECK: Supple, no adenopathy LUNGS: Minimal respiratory effort with significant upper airway gurgling SpO2<96> CARDIOVASCULAR: Tachycardic rate and rhythm without noted murmurs. ABDOMEN: Soft, non-tender, non-distended with bowel sounds. MUSCULOSKELETAL: No tenderness, deformities, or effusions noted on gross inspection. EXTREMITIES: No cyanosis, clubbing or edema. SKIN: Inspection of the skin reveals no rashes, a diaphoretic NEUROLOGIC: GCS-10 Medications Administered Generic Name Dose Route Start Last Admin Trade Name Freq PRN Reason Stop Dose Admin Sodium Chloride 1,000 mls @ 999 mls/hr 04/04/23 21:30 04/04/23 21:31 Ns IV 04/04/23 22:30 999 mls/hr .Q1H1M [place] Administration Discontinued Medications Generic Name Dose Route Start Last Admin Trade Name Nas PRN Reason Stop Dose Admin Naloxone HCl 4 mg 04/04/23 20:32 04/04/23 21:10 Naloxone Hcl Nasal [address] [place] NOSTRILALT 04/04/23 20:33 4 mg ONCE ONE Administration Naloxone HCl 4 mg 04/04/23 20:32 04/04/23 21:11 Naloxone Hcl Nasal [address] [place] NOSTRILALT 04/04/23 20:33 4 mg ONCE ONE Administration Naloxone HCl 2 mg 04/04/23 20:32 04/04/23 21:11 Naloxone Hcl 2 Mg/2 Ml Syringe IVPUSH 04/04/23 20:33 2 mg ONCE ONE Administration Medical Decision Making Medical Decision Making [facility] Narrative: 33-year-old male who arrives unresponsive, airway support given and bagging initiated, suction is airway and also placed a nasal pharyngeal support through the right nostril, additional intranasal Narcan given through left nostril and immediately bagged afterwards, oxygenation remained stable throughout, patient received 4 mg of IV Zofran as well as 2 mg of IV Narcan after successful placement of peripheral IV. Patient was tachycardic and placed on capnography with initial capnography read showing an approximately 28 in gradually improved along with level of consciousness. Second dose of intranasal Narcan was given. Patient received a total of 14 mg of Narcan, to IV and 12 intranasal. I reviewed patient's investigations knee clearly has a stress leukocytosis and lactic acidosis is secondary to hypoxic event. Patient will receive 1 L of IV fluids. Signed out to Dr Moya - f/u UDS, etoh, CXR - Repeat BMP/CBC prior to discharge if not kept for admission Differential Diagnosis Please see the discussion above Lab Data 04/04/23 20:35 04/04/23 20:35 Labs: Lab Results 04/04/23 04/04/23 04/04/23 Range/Units 20:29 20:35 20:35 WBC 14.4 H (4.8-10.8) X10*3/uL RBC 5.91 H (4.60-5.80) X10*6/uL Hgb 17.7 (14.0-18.0) g/dl Hct 49.7 (42.0-52.0) % MCV 84.1 (80.0-98.0) fL MCH 29.9 (27.0-33.0) pg MCHC 35.6 (31.0-36.0) g/dl RDW 13.2 (11.0-16.0) % Plt Count 236 (160-400) X10*3/uL MPV 10.7 (9.4-12.4) fL Immature Gran % (Auto) 0.3 (0.0-0.4) % Neut % (Auto) 53.1 (45-73) % Lymph % (Auto) 33.7 (20-40) % [place] % (Auto) 11.5 H (2-11) % Eos % (Auto) 0.6 (0-4) % Baso % (Auto) 0.8 (0-2) % Lymph # (Auto) 4.9 (1.2-4.9) X10*3/uL [place] # (Auto) 1.7 H (0.1-1.2) X10*3/uL Eos # (Auto) 0.1 (0.0-0.4) X10*3/uL Baso # (Auto) 0.1 (0.0-0.2) X10*3/uL Abs Immat Gran (auto) 0.04 H (0.00-0.03) X10*3/uL Absolute Neuts (auto) 7.7 (2.0-8.3) x10*3/uL Absolute Nucleated RBC 0.000 (0.0-0.012) X10*3/uL Nucleated RBC % (auto) 0.0 (0.0-0.2) /100WBC PT (10.0-13.1) SEC INR (0.9-1.1) Sodium 143 (135-145) mmol/L Potassium 3.0 L (3.3-5.1) mmol/L Chloride 104 (96-108) mmol/L Carbon Dioxide 20 L (22-29) mmol/L Anion Gap 22 H (12-20) BUN 11 (9-16) mg/dL Creatinine 1.19 (0.5-1.4) mg/dL Estim Creat Clear Calc 96.0 Estimated GFR > 60 Random Glucose 170 H (60-115) mg/dL Lactic Acid 6.1 H* (0.5-2.0) mmol/L Calcium 10.0 (8.4-10.2) mg/dL Total Bilirubin 0.6 (0.0-1.0) mg/dL AST 18 (5-37) U/L ALT 16 (0-40) U/L Alkaline Phosphatase 80 (39-117) U/L Total Creatine Kinase 213 H (38-174) U/L Troponin I High Sens (<3.5-35.0) ng/L Total Protein 7.7 (6.5-8.0) g/dL Albumin 5.1 H (3.5-5.0) g/dL 04/04/23 04/04/23 Range/Units 20:35 20:35 WBC (4.8-10.8) X10*3/uL RBC (4.60-5.80) X10*6/uL Hgb (14.0-18.0) g/dl Hct (42.0-52.0) % MCV (80.0-98.0) fL MCH (27.0-33.0) pg MCHC (31.0-36.0) g/dl RDW (11.0-16.0) % Plt Count (160-400) X10*3/uL MPV (9.4-12.4) fL Immature Gran % (Auto) (0.0-0.4) % Neut % (Auto) (45-73) % Lymph % (Auto) (20-40) % [place] % (Auto) (2-11) % Eos % (Auto) (0-4) % Baso % (Auto) (0-2) % Lymph # (Auto) (1.2-4.9) X10*3/uL [place] # (Auto) (0.1-1.2) X10*3/uL Eos # (Auto) (0.0-0.4) X10*3/uL Baso # (Auto) (0.0-0.2) X10*3/uL Abs Immat Gran (auto) (0.00-0.03) X10*3/uL Absolute Neuts (auto) (2.0-8.3) x10*3/uL Absolute Nucleated RBC (0.0-0.012) X10*3/uL Nucleated RBC % (auto) (0.0-0.2) /100WBC PT 12.0 (10.0-13.1) SEC INR 1.0 (0.9-1.1) Sodium (135-145) mmol/L Potassium (3.3-5.1) mmol/L Chloride (96-108) mmol/L Carbon Dioxide (22-29) mmol/L Anion Gap (12-20) BUN (9-16) mg/dL Creatinine (0.5-1.4) mg/dL Estim Creat Clear Calc Estimated GFR Random Glucose (60-115) mg/dL Lactic Acid (0.5-2.0) mmol/L Calcium (8.4-10.2) mg/dL Total Bilirubin (0.0-1.0) mg/dL AST (5-37) U/L ALT (0-40) U/L Alkaline Phosphatase (39-117) U/L Total Creatine Kinase (38-174) U/L Troponin I High Sens 2.8 (<3.5-35.0) ng/L Total Protein (6.5-8.0) g/dL Albumin (3.5-5.0) g/dL Discharge Plan Discharge Clinical Impression: Drug overdose Patient Disposition: Still a Patient
[2023-04-04 20:45] LABS: Basophils Absolute Auto 0.1 X10*3/uL (0.0-0.2); Basophils Percent Auto 0.8 % (0-2); Eosinophils Absolute Auto 0.1 X10*3/uL (0.0-0.4); Eosinophils Percent Auto 0.6 % (0-4); Hematocrit 49.7 % (42.0-52.0); Hemoglobin 17.7 g/dl (14.0-18.0); Imm Gran Abs Auto 0.04 X10*3/uL (0.00-0.03); Imm Gran Pct Auto 0.3 % (0.0-0.4); Lymphocytes Absolute Auto 4.9 X10*3/uL (1.2-4.9); Lymphocytes Percent Auto 33.7 % (20-40); MANUAL DIFF FLAG SCAN; Mean Corpuscular HGB Conc 35.6 g/dl (31.0-36.0); Mean Corpuscular Hemoglobin 29.9 pg (27.0-33.0); Mean Corpuscular Volume 84.1 fL (80.0-98.0); Mean Platelet Volume 10.7 fL (9.4-12.4); Monocytes Absolute Auto 1.7 X10*3/uL (0.1-1.2); Monocytes Percent Auto 11.5 % (2-11); Neutrophils Absolute Auto 7.7 x10*3/uL (2.0-8.3); Neutrophils Percent Auto 53.1 % (45-73); Platelet Count 236 X10*3/uL (160-400); Red Blood Count 5.91 X10*6/uL (4.60-5.80); Red Cell Distribution Width 13.2 % (11.0-16.0); SCAN SMEAR FLAG 1; White Blood Count 14.4 X10*3/uL (4.8-10.8)
--- OUTSIDE RECORDS SUMMARY | 2023-04-04 20:47 | XMS_ITS | Continuity of Care Document ---
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 Name Role Phone Sapna Alba MD Primary Care Physician Encounter [facility] [place] Date(s): 02/16/20 - 02/16/[address] [address]- [facility] Encounter Diagnosis Viral illness(Final) - 02/16/20 Discharge Disposition: A-D/C Home Attending Physician: Davon Amaral MD Admitting Physician: Davon Amaral MD Referring Physician: Not on Staff, Referring MD Allergies, Adverse Reactions, Alerts Substance Reaction Severity Status vancomycin rash Active Medications ibuprofen 600 mg oral tablet 600 mg, 1, tablet, By Mouth, Every 8 hours, PRN, # 20 tablet, Refills 0, Tot. Refills 0, Maintenance, as needed for pain, 10/30/18 19:05:33 EST, Print Requisition Start Date: 10/30/18 Status: Ordered ibuprofen 600 mg oral tablet 600 mg, 1, tablet, By Mouth, Every 6 hours, for 7 days, # 28 tablet, Refills 0, Tot. Refills 0, Acute 02/23/20 5:57:00 EDT, 02/16/20 5:57:00 EDT, Route to Pharmacy Electronically, [facility] #[id number], 178, cm, 10/30/18 18:39:00 EST, Height, 89... Start Date: 02/16/20 Stop Date: 02/23/20 Status: Ordered Tylenol 325 mg oral tablet 650 mg, 2, tablet, By Mouth, Every 6 hours, PRN, for 7 days, # 56 tablet, Refills 0, Tot. Refills 0, Acute 02/23/20 5:57:00 EDT, for fever, 02/16/20 5:57:00 EDT, Route to Pharmacy Electronically, [facility] #[id number], 178, cm, 10/30/18 18:39:00... Start Date: 02/16/20 Stop Date: 02/23/20 Status: Ordered Zofran ODT 4 mg oral tablet, disintegrating 1 tablet = 4 mg, By Mouth, 3 times a day, # 9 tablet, 0 Refills, Maintenance, 02/16/20 5:57:00 EDT,[email or web address] #[id number], 178, cm, 10/30/18 18:39:00 EST, Height, 89.9, kg, 10/30/18 18:39:00 EST, Dry Weight Start Date: 02/16/20 Stop Date: 02/19/20 Status: Ordered Vital Signs Most recent to oldest [Reference Range]: 1 Oxygen Saturation [94-100 %] 100 % (02/16/20 5:28 AM) Pulse Rate [55-90 bpm] 87 bpm (02/16/20 5:28 AM) Blood Pressure [90-138/55-84 mm Hg] 162/ 99mm Hg *H* (02/16/20 5:28 AM) Respiratory Rate [16-30 br/min] 25 br/mi n (02/16/20 5:28 AM) Temperature [96.8-100.4 DegF] 98.7 DegF (02/16/20 5:28 AM) Mode of Delivery (Oxygen) Room air (02/16/20 5:28 AM) Temperature Route Oral (02/16/20 5:28 AM) Social History Social History Type Response Smoking Status 10 or more cigarette s (1/2 pack or more)/day in last 30 days entered on: 10/30/18 Sex
--- NOTE | 2023-04-04 20:48 | PC.NURSE ---
Addendum entered by Rivka Helms 04/04/23 21:59: correction nasal airway not dmitry. Original Note: Pt arrived to ED unresponsive. Pt given 4mg of nasal narcan in triage and another 4mg of nasal narcan in ED. 2 IV's placed and given 2mg of IV narcan. 4mg of zofran given. Dmitry airway placed temporarily. EKG completed and pt placed on bedside monitor. Pt awake to painful stimuli and able to answer questions of name and requesting that we call his gf Kim Benoita. Pt awake right now responding to questions.
--- NOTE | 2023-04-04 20:57 | PC.NURSE ---
Pt's mother rosanne called, pt gave RN permission to speak with mother and give an update. Friend at bedside with pt.
[2023-04-04 21:03] LABS: Alanine Aminotransferase 16 U/L (0-40); Albumin Level 5.1 g/dL (3.5-5.0); Alkaline Phosphatase 80 U/L (39-117); Anion Gap 22 (12-20); Aspartate Amino Transferase 18 U/L (5-37); Bilirubin Total 0.6 mg/dL (0.0-1.0); Blood Urea Nitrogen 11 mg/dL (9-16); Carbon Dioxide 20 mmol/L (22-29); Chloride 104 mmol/L (96-108); Estimated Glomerular Filt Rate > 60; Glucose Random 170 mg/dL (60-115); Sodium 143 mmol/L (135-145); Total Protein 7.7 g/dL (6.5-8.0)
--- NOTE | 2023-04-04 21:08 | PC.NURSE ---
pt awake able to answer, clam and cooperative, per pt okay to speak to mother and family members.
[2023-04-04 21:09] LABS: Troponin-I High Sensitivity 2.8 ng/L (<3.5-35.0)
[2023-04-04] MEDS: Naloxone HCl Nasal 4 MG SPRAY NOSTRILALT ×2 (21:10→21:11)
[2023-04-04] MEDS: Naloxone HCl 2 MG/2 ML SYRINGE IVPUSH (21:11)
[2023-04-04 21:28] LABS: Lactic Acid 6.1 mmol/L (0.5-2.0)
[2023-04-04] MEDS: 0.9 % Sodium Chloride 1,000 ML 999 ML IV (21:31)
--- NOTE | 2023-04-04 21:34 | PC.NURSE ---
Pt placed on 1L of NS. Pts friends still at bedside. Will continue to monitor.
[2023-04-04] MEDS: ondansetron HCL 4 MG/2 ML VIAL IVPUSH ×2 (21:41→21:43)
--- NOTE | 2023-04-04 21:44 | PC.NURSE ---
Pt reporting nausea and vomiting. First dose of 4mg zofran given upon arrival. Provider just entered order into jan. Second dose of 4mg zofran just given. Pt's GF and friend at bedside. Pt responds to verbal commands. Will continue to monitor.
[2023-04-04 21:56] LABS: Magnesium 2.5 mg/dL (1.6-2.6)
[2023-04-04 22:17] LABS: SLIDE REVIEW VERIFIED
[2023-04-04 22:42] LABS: Ethanol 189 mg/dL
[2023-04-04 22:52] VITALS: BP 135/75; PULSE 86; RESP 14; TEMP 36.4; O2SAT 97
--- NOTE | 2023-04-04 22:54 | PC.NURSE ---
Pt requesting drink, gingerale given. Pt ca&ox3. No signs of distress. Pt's gf and friend still at bedside. Will continue to monitor.
--- NOTE | 2023-04-04 22:56 | PC.NURSE ---
pt sitting up in bed answer question appropriately, po challenge, Will continue to monitor.
[2023-04-04 23:04] LABS: Appearance Urine Clear; Color Urine Yellow; Glucose Urine UA Negative (Negative); Leukocyte Esterase Urine Negative (Negative); Nitrite Urine Negative (Negative); PH 5.5 (5.0-9.0); Urine Blood Negative (Negative); Urine Ketones Negative (Negative); Urine Protein Negative (Neg-Trace)
[2023-04-04 23:09] LABS: Amphetamine Screen Urine Not Detected (Not Detect); Barbiturates, Urine Not Detected (Not Detect); Benzodiazepines Screen Urine Not Detected (Not Detect); Cannabinoid Screen Urine Not Detected (Not Detect); Cocaine Screen Urine Not Detected (Not Detect); Fentanyl, urine Not Detected (Not Detect); Opiate Screen Urine Not Detected (Not Detect); Phencyclidine Screen Urine Not Detected (Not Detect)
[2023-04-04 23:12] LABS: Reflex Lactate? Lactic Acid Added
--- NOTE | 2023-04-04 23:15 | PC.NURSE ---
Pt ca&ox3. No signs of distress. Denies chest pain and sob. Pt refused PO potassium. Pt ambulated to bathroom with steady gait, requesting d/c. Pt requesting and given water. Will continue to monitor.
[2023-04-04] MEDS: Naloxone HCl Nasal TAKE HOME 4 MG SPRAY NOSTRILALT (23:24)
--- NOTE | 2023-04-04 23:28 | PC.NURSE ---
Pt requesting d/c. Refusing further testing. Pt ca&ox3. Pt given take home narcan and educated on use.
--- NOTE | 2023-04-05 00:09 | PC.NURSE ---
discharge instructions given and explained to pt no apparent distress ambulates safely/independently IV cath intact upon removal
[2023-04-05] MEDS: Naloxone HCl Nasal TAKE HOME 4 MG SPRAY NOSTRILALT (00:11)
--- NOTE | 2023-04-05 00:11 | PC.NURSE ---
pt given naloxone nasal to take home on discharge
[2023-04-05 06:51] LABS: Glucose, Whole Blood 176 mg/dL (60-115)
== END 2023-04-05 00:09 | disposition home or self-care (01) ==
PROVIDERS: Student in an Organized Health Care Education/Training Program; Emergency Provider Emergency Medicine
DX: T50.901A Poisoning by unspecified drugs, medicaments and biological substances, accidental (unintentional), initial encounter (principal); R00.0 Tachycardia, unspecified; R07.89 Other chest pain; Y92.9 Unspecified place or not applicable; Z71.51 Drug abuse counseling and surveillance of drug abuser; Z79.899 Other long term (current) drug therapy
CPT/HCPCS: 36415; 71045; 80053; 80307; 81003; 82550; 82947; 83605; 83735; 84484; 85025; 85610; 96361; 96374; 96375; 99285; J2405

== ENCOUNTER 2023-08-04 20:19 | Emergency (ER) | payer MEDICAID, SELFPAY ==
[2023-08-04 20:47] VITALS: BP 118/76; PULSE 91; RESP 18; TEMP 36.7; O2SAT 97; BMI 25.9
[2023-08-04 21:23] VITALS: BP 119/84; PULSE 72; RESP 16; TEMP 36.7; O2SAT 95
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
[2023-08-04] MEDS: Amoxicillin/Potassium Clav 875 MG TABLET PO (21:42)
[2023-08-04] MEDS: Diphth,Pertus(ACell),Tet Adult 0.5 ML SYRINGE IM (21:43)
[2023-08-04] MEDS: Ketorolac Tromethamine 30 MG/ML VIAL IM (21:46)
== END 2023-08-04 22:02 | disposition home or self-care (01) ==
PROVIDERS: Emergency Provider Emergency Medicine Emergency Medical Services
DX: S91.032A Puncture wound without foreign body, left ankle, initial encounter (principal); S90.512A Abrasion, left ankle, initial encounter; R60.0 Localized edema; Y28.9XXA Contact with unspecified sharp object, undetermined intent, initial encounter; Y93.9 Activity, unspecified; Y92.9 Unspecified place or not applicable; Y99.9 Unspecified external cause status; F17.210 Nicotine dependence, cigarettes, uncomplicated; Z71.6 Tobacco abuse counseling; Z79.899 Other long term (current) drug therapy; Z23 Encounter for immunization
CPT/HCPCS: 90471; 90715; 96372; 99283; 99284; J1885

== ENCOUNTER 2023-08-06 18:24 | Emergency (ER) | payer MEDICAID, SELFPAY ==
--- NOTE | ~2023-08-06 | XR_ITS ---
EXAMINATION: XR ANKLE, LEFT CLINICAL INFORMATION: Swelling, erythema; puncture wound. COMPARISON: Left tibia and fibula radiographs dated 02/12/2021. TECHNIQUE: AP, lateral, and mortise views of the left ankle. FINDINGS: Bony alignment and mineralization are normal. The ankle mortise is intact. No fracture, dislocation or right ankle joint effusion is seen. Boehler's angle is normal. There is no calcaneal spur. There is marked soft tissue swelling adjacent to the lateral malleolus. No soft tissue gas or foreign body is seen. XR/XR ankle LT min 3V IMPRESSION: 1. No fracture, dislocation or left ankle joint effusion is seen. 2. There is marked soft tissue swelling adjacent to the lateral malleolus.
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
[2023-08-06 18:45] VITALS: BP 136/94; PULSE 73; RESP 18; TEMP 36.6; O2SAT 98; BMI 25.9
[2023-08-06 19:47] LABS: MANUAL DIFF FLAG NO
[2023-08-06 19:49] LABS: Basophils Absolute Auto 0.1 X10*3/uL (0.0-0.2); Basophils Percent Auto 0.5 % (0-2); Eosinophils Absolute Auto 0.1 X10*3/uL (0.0-0.4); Eosinophils Percent Auto 0.8 % (0-4); Hematocrit 46.4 % (42.0-52.0); Hemoglobin 16.1 g/dl (14.0-18.0); Imm Gran Abs Auto 0.04 X10*3/uL (0.00-0.03); Imm Gran Pct Auto 0.4 % (0.0-0.4); Lymphocytes Absolute Auto 2.8 X10*3/uL (1.2-4.9); Lymphocytes Percent Auto 26.6 % (20-40); Mean Corpuscular HGB Conc 34.7 g/dl (31.0-36.0); Mean Corpuscular Hemoglobin 30.9 pg (27.0-33.0); Mean Corpuscular Volume 89.1 fL (80.0-98.0); Mean Platelet Volume 10.9 fL (9.4-12.4); Monocytes Absolute Auto 0.9 X10*3/uL (0.1-1.2); Monocytes Percent Auto 8.7 % (2-11); Neutrophils Absolute Auto 6.5 x10*3/uL (2.0-8.3); Platelet Count 167 X10*3/uL (160-400); Red Blood Count 5.21 X10*6/uL (4.60-5.80); Red Cell Distribution Width 12.8 % (11.0-16.0); White Blood Count 10.4 X10*3/uL (4.8-10.8)
[2023-08-06 19:55] LABS: INTERNATIONAL NORM RATIO 0.9 (0.9-1.1); Prothrombin Time 11.4 SEC (11.1-13.3)
[2023-08-06 19:57] LABS: Lactic Acid 0.9 mmol/L (0.5-2.0)
[2023-08-06 20:02] LABS: Alanine Aminotransferase 14 U/L (0-40); Albumin Level 4.4 g/dL (3.5-5.0); Alkaline Phosphatase 60 U/L (39-117); Anion Gap 11 (12-20); Aspartate Amino Transferase 15 U/L (5-37); Bilirubin Direct 0.1 mg/dL (0.0-0.5); Bilirubin Total 0.3 mg/dL (0.0-1.0); Blood Urea Nitrogen 17 mg/dL (9-16); C Reactive Protein 0.64 mg/dL (< or = 0.50); Calcium 9.6 mg/dL (8.4-10.2); Carbon Dioxide 30 mmol/L (22-29); Chloride 104 mmol/L (96-108); Creatinine Clr Calc Pharmacy 125.9; Estimated Glomerular Filt Rate > 60; Glucose Random 90 mg/dL (60-115); Sodium 141 mmol/L (135-145); Total Protein 6.9 g/dL (6.5-8.0)
[2023-08-06 20:11] VITALS: BP 141/81; PULSE 70; RESP 18; TEMP 36.5; O2SAT 98
[2023-08-06 20:27] LABS: Erythrocyte Sedimentation Rate 2 MM/HR (0-15)
[2023-08-06] MEDS: Ketorolac Tromethamine 30 MG/ML VIAL IM (21:50)
--- NOTE | 2023-08-06 21:55 | PC.NURSE ---
pt medicated per JAN for 9/10 left ankle pain.
== END 2023-08-06 21:56 | disposition home or self-care (01) ==
PROVIDERS: Physician Assistant; Emergency Provider Emergency Medicine
DX: L03.116 Cellulitis of left lower limb (principal); S91.032D Puncture wound without foreign body, left ankle, subsequent encounter; W27.2XXD Contact with scissors, subsequent encounter; F17.210 Nicotine dependence, cigarettes, uncomplicated; F11.90 Opioid use, unspecified, uncomplicated; F12.90 Cannabis use, unspecified, uncomplicated
CPT/HCPCS: 36415; 73610; 80048; 80076; 83605; 85025; 85610; 85652; 86140; 87040; 96372; 99283; 99284; J1885

== ENCOUNTER 2024-11-30 14:44 | Outpatient (REF) | payer MEDICAID, SELFPAY ==
[2024-11-30 15:01] LABS: MANUAL DIFF FLAG NO
[2024-11-30 15:32] LABS: Basophils Absolute Auto 0.1 X10*3/uL (0.0-0.2); Basophils Percent Auto 1.3 % (0-2); Eosinophils Absolute Auto 0.2 X10*3/uL (0.0-0.4); Eosinophils Percent Auto 2.2 % (0-4); Hematocrit 47.6 % (42.0-52.0); Hemoglobin 16.3 g/dl (14.0-18.0); Imm Gran Abs Auto 0.02 X10*3/uL (0.00-0.03); Imm Gran Pct Auto 0.3 % (0.0-0.4); Lymphocytes Absolute Auto 2.3 X10*3/uL (1.2-4.9); Lymphocytes Percent Auto 33.5 % (20-40); Mean Corpuscular HGB Conc 34.2 g/dl (31.0-36.0); Mean Corpuscular Hemoglobin 29.9 pg (27.0-33.0); Mean Corpuscular Volume 87.3 fL (80.0-98.0); Mean Platelet Volume 11.1 fL (9.4-12.4); Monocytes Absolute Auto 0.7 X10*3/uL (0.1-1.2); Monocytes Percent Auto 10.4 % (2-11); Neutrophils Absolute Auto 3.6 x10*3/uL (2.0-8.3); Neutrophils Percent Auto 52.3 % (45-73); Platelet Count 242 X10*3/uL (160-400); Red Blood Count 5.45 X10*6/uL (4.60-5.80); Red Cell Distribution Width 12.6 % (11.0-16.0)
[2024-11-30 16:17] LABS: Alanine Aminotransferase 38 U/L (0-40); Albumin Level 4.5 g/dL (3.5-5.0); Anion Gap 11 (12-20); Aspartate Amino Transferase 26 U/L (5-37); Bilirubin Total 0.5 mg/dL (0.0-1.0); Blood Urea Nitrogen 10 mg/dL (9-16); Calcium 9.7 mg/dL (8.4-10.2); Carbon Dioxide 32 mmol/L (22-29); Chloride 101 mmol/L (96-108); Estimated Glomerular Filt Rate > 60; Glucose Random 62 mg/dL (60-115); Potassium 3.9 mmol/L (3.3-5.1); Sodium 140 mmol/L (135-145); Total Protein 7.5 g/dL (6.5-8.0)
[2024-11-30 16:48] LABS: Alkaline Phosphatase 70 U/L (39-117)
[2024-11-30 16:57] LABS: CT PCR NOT DETECTED (Not Detect.); NG PCR NOT DETECTED (Not Detect.)
[2024-12-01 08:48] LABS: Syphilis Screen Reactive (Nonreactive)
[2024-12-04 14:25] LABS: RPR Quantitative Reactive 1:4 (Nonreactive)
[2024-12-04 14:26] LABS: T.Pallidum Particle Agg Test Reactive (Nonreactive)
== END 2024-11-30 14:45 | disposition home or self-care (01) ==
LOC: HO.LAB 14:44
PROVIDERS: PCP Internal Medicine; Visit Provider Internal Medicine
DX: A53.0 Latent syphilis, unspecified as early or late (principal); F32.9 Major depressive disorder, single episode, unspecified; R11.10 Vomiting, unspecified; R13.10 Dysphagia, unspecified
CPT/HCPCS: 36415; 80053; 85025; 86592; 86780; 87491; 87591

== ENCOUNTER 2025-10-18 00:37 | Emergency (ER) | payer MEDICAID, SELFPAY ==
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
--- NOTE | ~2025-10-18 | XR_ITS ---
CLINICAL HISTORY: trauma 3 views right fifth digit Comparison: None Findings: There is a questionable subtle nondisplaced fracture of the tuft of the 5th digit distal phalanx. Joint spaces and joint alignment are normal. There is no radiopaque foreign body. Impression: Questionable subtle nondisplaced fracture of the tuft of the 5th digit distal phalanx. This document has been electronically signed by: Giacomo Mcmanus MD on 10/18/2025 04:01:54
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
[2025-10-18 00:44] VITALS: BP 171/109; PULSE 71; RESP 18; TEMP 36.6; O2SAT 97; BMI 23.4
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
[2025-10-18 01:17] LABS: Hematocrit 43.8 % (42.0-52.0); Hemoglobin 15.5 g/dl (14.0-18.0); Imm Gran Abs Auto 0.02 X10*3/uL (0.00-0.03); Imm Gran Pct Auto 0.2 % (0.0-0.4); Lymphocytes Absolute Auto 2.0 X10*3/uL (1.2-4.9); MANUAL DIFF FLAG NO; Mean Corpuscular HGB Conc 35.4 g/dl (31.0-36.0); Mean Corpuscular Hemoglobin 30.6 pg (27.0-33.0); Mean Corpuscular Volume 86.4 fL (80.0-98.0); NRBC Abs Auto 0.000 X10*3/uL (0.0-0.012); NRBC Pct Auto 0.0 /100WBC (0.0-0.2); Platelet Count 189 X10*3/uL (160-400); Red Blood Count 5.07 X10*6/uL (4.60-5.80); White Blood Count 10.3 X10*3/uL (4.8-10.8)
[2025-10-18 01:23] LABS: INTERNATIONAL NORM RATIO 1.0 (0.9-1.1); Prothrombin Time 12.2 SEC (11.2-13.5)
[2025-10-18 01:25] LABS: Partial Thromboplastin Time 27.8 SEC (26.7-34.1)
[2025-10-18 01:33] LABS: Alanine Aminotransferase 37 U/L (0-40); Albumin Level 4.7 g/dL (3.5-5.0); Alkaline Phosphatase 72 U/L (39-117); Anion Gap 14 (12-20); Aspartate Amino Transferase 41 U/L (5-37); Blood Urea Nitrogen 12 mg/dL (9-16); Calcium 9.0 mg/dL (8.4-10.2); Carbon Dioxide 25 mmol/L (22-29); Chloride 104 mmol/L (96-108); Creatinine Clr Calc Pharmacy 146.9; Estimated Glomerular Filt Rate > 60; Potassium 3.3 mmol/L (3.3-5.1); Sodium 140 mmol/L (135-145); Total Protein 6.9 g/dL (6.5-8.0)
--- OUTSIDE RECORDS SUMMARY | 2025-10-18 01:51 | XMS_ITS | Clinical Summary ---
Author Organization [facility] Address [address] [place] [id number] Phone Care Team Providers Care Body And Frame Man Name Role Phone Unavailable Primary Care Provider Unavailabl e Immunizations Immunization Administration Dates Next Due DTP 02/23/1993, 2,01/16/1990,1988,1989 Hep B, ped/adol 03/12/2001,06/17/2000,05/16/2000 Hib (PRP-T) 09/03/1990 MMR 02/23/1993,07/15/1990 OPV 02/23/1993, 0,1989,1988 Td (adult) (MBL), 2 Lf tetan us toxoid, PF, adsorbed 01/26/2004 Family History Relation Name Status Comments Half-Brother Alive Half brother (M ): Asthma and constipation Mother Alive Mother: Alive a nd well Social History Tobacco Use Types Packs/Day Years Used Date Smoking Tobacco: Never Assessed Sex and Gender Information Value Date Recorded Sex Assigned at Not on file Legal Sex Male 4:11 PM EDT Gender Identity Not on file Sexual Orientation Not on file Plan of Treatment Health Maintenance Due Date Last Done Comments Varicella Vaccines (1 of 2 - 13+ 2-dose series) 2002 DTaP,Tdap,and Td Vaccines (6 - Tdap) 01/27/2004 01/26/2004, 02/23/1993, 10/28/1992, Additional history exists HPV Vaccines (1 - 3-dose SCDM series) 02/03/2016 Influenza Vaccines (#1) 2025 COVID-19 Vaccine ( - 2024- season) 2025 HIB Vaccines Completed 09/03/1990 IPV Vaccines Completed 02/23/1993, 12/27, 1989, Additional history exists MMR Vaccines Completed 02/23/1993, 07/15/1990 Hepatitis B Vaccines Completed 03/12/2001, 06/17/2000, 05/16/2000 Hepatitis A Vaccines Aged Out No long er eligible based on patient's age to complete this topic Men B Vaccine Aged Out No longer elig ible based on patient's age to complete this topic Meningococcal Vaccine Aged Out No evan fatmata eligible based on patient's age to complete this topic Pneumococcal Vaccine Aged Out No long er eligible based on patient's age to complete this topic
--- OUTSIDE RECORDS SUMMARY | 2025-10-18 01:51 | XMS_ITS | Clinical Summary ---
Author Organization [facility] it Address [id number] [place] [id number] Care Team Providers Care Equipment Application Specialist Name Role Phone Sapna Alba MD Primary Care Provider [phone] Social History Tobacco Use Types Packs/Day Years Used Date Smoking Tobacco: Never Assessed Sex and Gender Information Value Date Recorded Sex Assigned at Not on file Legal Sex Male 11:38 AM EST Gender Identity Not on file Sexual Orientation Not on file Plan of Treatment Health Maintenance Due Date Last Done Comments DTaP,Tdap,and Td Vaccines (1 - Tdap) 02/03/2008 Hepatitis B Vaccines (1 of 3 - 19+ 3-dose series) 02/03/2008 HPV Vaccines (1 - 3-dose SCD M series) 02/03/2016 Depression Screening 11/25/2024 COVID-19 Vaccine (2 - 2024-2 6 season) 2025 11/21/2021 Influenza Vaccine (#1) 2025 08/15/2018 RSV Immunization Adult Patie nts (1 - 1-dose 75+ series) 02/03/2064 HIB Vaccines Aged Out No longer eligi ble based on patient's age to complete this topic Hepatitis A Vaccines Aged Out No long er eligible based on patient's age to complete this topic IPV Vaccines Aged Out No longer eligi ble based on patient's age to complete this topic MMR Vaccines Aged Out No longer eligi ble based on patient's age to complete this topic Meningococcal ACWY Vaccine Aged Out N o longer eligible based on patient's age to complete this topic Meningococcal B Vaccine Aged Out No l onger eligible based on patient's age to complete this topic Pneumococcal Vaccine: Pediat rics (0 to 5 Years) and At-Risk Patients (6 to 49 Years) Aged Out No longer eligi ble based on patient's age to complete this topic RSV Immunization Patients Un lisa 20 months Aged Out No longer eligible b ased on patient's age to complete this topic Varicella Vaccines Aged Out No longer eligible based on patient's age to complete this topic Care Teams Equipment Application Specialist Relationship Specialty Start Date End Date Sapna Alba MD PCP - General Internal Medicine 05/14/17
--- OUTSIDE RECORDS SUMMARY | 2025-10-18 01:51 | XMS_ITS | Encounter Summary ---
Author Organization [facility] Address [address] [place] [phone] Phone Care Team Providers Care Manufacturing Technician Name Role Phone Unavailable Primary Care Provider Unavailabl e Encounter Details Date Type Department Care Team (Late st Contact Info) Description 07/11/2017 Conversion Encounter [facility] - [address] [id number] Social History Tobacco Use Types Packs/Day Years Used Date Smoking Tobacco: Never Assessed Sex and Gender Information Value Date Recorded Sex Assigned at Not on file Legal Sex Male 4:11 PM EDT Gender Identity Not on file Sexual Orientation Not on file documented as of this encounter Plan of Treatment Not on file documented as of this encounter Visit Diagnoses Not on filedocumented in this encounter
[2025-10-18] MEDS: Diphth,Pertus(ACell),Tet Adult 0.5 ML SYRINGE IM (02:22)
[2025-10-18 03:59] VITALS: BP 168/107; PULSE 84; RESP 19; TEMP 36.6; O2SAT 99
[2025-10-18 04:57] VITALS: BP 153/99; PULSE 75; RESP 18; O2SAT 95
[2025-10-18] MEDS: Lidocaine HCl 1 % MPF 5 ML VIAL INFILTRATI (04:57)
[2025-10-18 05:05] VITALS: BP 153/99; PULSE 75; RESP 18; TEMP 36.8; O2SAT 95
== END 2025-10-18 05:18 | disposition home or self-care (01) ==
PROVIDERS: Emergency Provider Emergency Medicine; PCP Internal Medicine
DX: S06.0XAA Concussion with loss of consciousness status unknown, initial encounter (principal); S61.216A Laceration without foreign body of right little finger without damage to nail, initial encounter; S01.81XA Laceration without foreign body of other part of head, initial encounter; S01.21XA Laceration without foreign body of nose, initial encounter; S62.616A Displaced fracture of proximal phalanx of right little finger, initial encounter for closed fracture; R40.2410 Glasgow coma scale score 13-15, unspecified time; R04.0 Epistaxis; M79.601 Pain in right arm; M79.641 Pain in right hand; R51.9 Headache, unspecified; M54.2 Cervicalgia; F17.210 Nicotine dependence, cigarettes, uncomplicated; Y04.2XXA Assault by strike against or bumped into by another person, initial encounter; Y93.9 Activity, unspecified; Y92.9 Unspecified place or not applicable; Y99.8 Other external cause status; Z51.81 Encounter for therapeutic drug level monitoring; Z79.899 Other long term (current) drug therapy; Z23 Encounter for immunization
CPT/HCPCS: 12002; 12013; 12053; 36415; 70450; 72125; 73090; 73140; 80053; 80307; 85025; 85610; 85730; 90471; 90715; 96365; 99284; J0690; J2003

== ENCOUNTER → 2025-10-18 00:51 | Outpatient (BNV) | payer MEDICAID, SELFPAY | PROVIDERS: Emergency Provider Emergency Medicine; PCP Internal Medicine; Visit Provider Radiology Diagnostic Radiology | DX: S09.90XA Unspecified injury of head, initial encounter (principal); Z04.3 Encounter for examination and observation following other accident; S67.196A Crushing injury of right little finger, initial encounter | CPT/HCPCS: 70450; 72125; 73090; 73140 ==

== ENCOUNTER 2025-10-26 06:04 | Emergency (ER) | payer MEDICAID, SELFPAY ==
--- NOTE | ~2025-10-26 | XR_ITS ---
EXAMINATION: XR HAND 3 OR MORE VIEWS RIGHT HISTORY: pain, injury COMPARISON: Comparison is made with the prior examination dated 10/18/2025. FINDINGS: Three views of the right hand are submitted. Osseous mineralization is normal. There is a comminuted fracture of the distal tuft of the 5th finger. No additional fracture is seen. There is no dislocation. The joint spaces are preserved. The soft tissues are unremarkable. XR/XR hand RT min 3V IMPRESSION: Comminuted fracture of the distal tuft of the 5th finger. Electronically signed by: Rafael Kelly MD 10/26/2025 08:20 AM PILLO
[2025-10-26 06:16] VITALS: BP 130/80; PULSE 89; RESP 18; TEMP 36.7; O2SAT 96; BMI 24.4
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
[2025-10-26 07:43] VITALS: BP 159/97; PULSE 85; RESP 20; TEMP 36.2; O2SAT 95
--- OUTSIDE RECORDS SUMMARY | 2025-10-26 09:20 | XMS_ITS | Clinical Summary ---
Author Organization [facility] Address [address] [place] [phone] Phone Care Team Providers Care Bead Wrapper Name Role Phone Unavailable Primary Care Provider [...]
--- OUTSIDE RECORDS SUMMARY | 2025-10-26 09:20 | XMS_ITS | Encounter Summary ---
Author Organization [facility] Address [address] [place] [phone] Phone Care Team Providers Care Door Slinger Name Role Phone Unavailable Primary Care Provider Unavailabl e Encounter Details Date Type Department Care Team (Late st Contact Info) Description 07/11/2017 Conversion Encounter [facility] - [address] [id number] Social History Tobacco Use Types Packs/Day Years [...]
--- OUTSIDE RECORDS SUMMARY | 2025-10-26 09:20 | XMS_ITS | Clinical Summary ---
Author Organization [facility] Address [id number] [place] [id number] Care Team Providers Care Technical Sourcing Recruiter Name Role Phone Sapna Alba MD Primary Care Provider [phone] Social History Tobacco Use Types Packs/Day Years [...] age to complete this topic Care Teams Technical Sourcing Recruiter Relationship Specialty Start Date End Date Sapna Alba MD PCP - General Internal Medicine 05/14/17
[2025-10-26 09:56] VITALS: BP 159/97; PULSE 85; RESP 20; TEMP 36.2; O2SAT 95
== END 2025-10-26 09:56 | disposition home or self-care (01) ==
PROVIDERS: Emergency Provider Emergency Medicine
DX: S62.636A Displaced fracture of distal phalanx of right little finger, initial encounter for closed fracture (principal); X58.XXXA Exposure to other specified factors, initial encounter; Y93.9 Activity, unspecified; Y92.9 Unspecified place or not applicable; Z48.02 Encounter for removal of sutures
CPT/HCPCS: 73130; 99283

== ENCOUNTER → 2025-10-26 07:42 | Outpatient (BNV) | payer MEDICAID, SELFPAY | PROVIDERS: Emergency Provider Emergency Medicine; Visit Provider Radiology Diagnostic Radiology | DX: S62.636A Displaced fracture of distal phalanx of right little finger, initial encounter for closed fracture (principal); Z04.3 Encounter for examination and observation following other accident | CPT/HCPCS: 73130 ==